=== PATIENT | male | born 1955 | race Caucasian/White ===

== ENCOUNTER 2018-05-27 11:00 | Inpatient (IN) | payer MEDICARE ==
[2018-05-27] MEDS ORDERED: Morphine 4 MG/ML VIAL ONE ×2 (11:27→13:13)
[2018-05-27] MEDS ORDERED: Ondansetron PF 4 MG/2 ML Vial ONE ×3 (11:27→15:15)
--- NOTE | 2018-05-27 11:52 | RAD ---
FXR Hip Rt 2-3 View History: [Fall] Comparison: Radiograph 2010 Findings: Practically undisplaced right mid cervical femoral neck fracture. There is some heterotopic ossification along the lesser trochanter. The right obturator ring appears to be intact. Impression: Right mid cervical femoral neck fracture.
--- NOTE | 2018-05-27 12:16 | RAD ---
PORTABLE CHEST 1 VIEW: Date; 05/27/18 Time: 1152 hours HISTORY: Preoperative evaluation. Hip fracture. FINDINGS: The heart size is normal. The lungs are well expanded without focal areas of consolidation, pneumotho races, jesus pulmonary edema, or pleural effusions. IMPRESSION: No acute process. POS: TPC
[2018-05-27 12:18] LABS: #Basophils 0.1 thou/uL (0.0-0.2); #Eosinphils 0.1 thou/uL (0.0-0.7); #Monocytes 0.5 thou/uL (0.11-0.59); #Neutrophils 6.1 thou/uL (1.40-6.50); %Basophils 0.9 % (0.0-1.0); %Eosinophils 1.1 % (0.0-10.0); %Lymphocytes 12.3 % (21.0-51.0); %Monocytes 6.9 % (0.0-10.0); %Neutrophils 78.8 % (42.0-75.0); Hemoglobin 14.5 g/dL (14.0-18.0); Mean Corpuscular HGB CONC 32.7 g/dL (32.0-36.0); Mean Corpuscular Hemoglobin 29.7 pg (27.0-31.0); Mean Corpuscular Volume 90.8 fL (78.0-98.0); Platelet Count 160 thou/uL (130-400); RBC Distribution Width 12.2 % (11.5-14.5); Red Blood Cell (RBC) Count 4.89 mill/uL (4.70-6.10); White Blood Cell (WBC) Count 7.8 thou/uL (4.8-10.8)
[2018-05-27 12:34] LABS: ALT (SGPT) 12 U/L (8-55); AST (SGOT) 14 U/L (5-34); Albumin 4.2 g/dL (3.4-4.8); Alkaline Phosphatase 53 U/L (40-150); Anion Gap 11 mmol/L (10-20); BUN (Urea Nitrogen) 25 mg/dL (8.4-25.7); Bilirubin, Total 0.5 mg/dL (0.2-1.2); Calc. Creatinine Clearance 0 mL/min (70-130); Carbon Dioxide 25 mmol/L (23-31); Chloride 109 mmol/L (98-107); Estimated GFR-MDRD 84; Globulin 2.3 g/dL (2.4-3.5); Glucose 109 mg/dL (80-115); Potassium 4.7 mmol/L (3.5-5.1); Protein, Total 6.5 g/dL (5.8-8.1); Sodium 140 mmol/L (136-145)
--- NOTE | 2018-05-27 13:04 | CON ---
DATE OF CONSULTATION: 05/27/2018 This is Giulia Dsouza PA-C dictating a report for Nitesh Mejia MD. CONSULTING PHYSICIAN: Nitesh Mejia MD REASON FOR CONSULTATION: Right hip fracture. HISTORY OF PRESENT ILLNESS: This is a 63-year-old male with past medical history significant for right-sided CVA in the , who presented to our emergency department after a mechanical fall at home. The patient states that he struck his head on the edge of a pickup truck, but reported significant right hip discomfort upon arrival. No loss of consciousness. He does state that his right leg is shorter at baseline, and he does wear an AFO to the right side. He denies any change in baseline sensation or numbness or tingling in this extremity. He denies any other extremity trauma. PAST MEDICAL HISTORY: Significant for hyperlipidemia, hypertension, and history of 2 strokes in 1988. PAST SURGICAL HISTORY: Significant for brain surgery in 1988, bilateral toe surgeries, and left shoulder surgery x2. SOCIAL HISTORY: The patient denies alcohol use and denies drug use. He has a 34-year history of smoking, but quit 17 years ago. He lives at home with family. He normally ambulates with a cane to the left upper extremity with AFO present to the right lower extremity. He states he does have a wheelchair at home available for use, and his home is wheelchair accessible. FAMILY HISTORY: Reviewed and noncontributory. REVIEW OF SYSTEMS: A 10-point review of systems conducted and otherwise negative except for stated above. PHYSICAL EXAMINATION: VITAL SIGNS: Show blood pressure of 130/75, pulse of 62, respiratory rate of 18 , temperature of 97.5 degrees Fahrenheit taken orally, and O2 saturation of 92% on room air. GENERAL: The patient is awake and alert. He is in no apparent distress. He is sitting up in the emergency department bed. His is present at bedside. He is pleasant and cooperative and answers all questions appropriately. HEENT: Head is normocephalic, atraumatic. NECK: Supple. Trachea midline. Breathing nonlabored. EXTREMITIES: The right upper extremity was noted to be contracted at the elbow. The right lower extremity is flexed at the hip and propped up on a pillow with flexion at the knee. There is an AFO noted to the right lower extremity. There is no evidence of ecchymosis or wounds to the right hip. The patient is unable to wiggle his toes, but reports intact sensation. The left upper and left lower extremities were noted to be without any evidence of trauma. RADIOGRAPHIC FINDINGS: Including views of the right hip demonstrate a right hip femoral neck fracture without displacement. ASSESSMENT: Right hip femoral neck fracture without displacement, status post mechanical fall in a patient with history of right-sided deficits, status post cerebrovascular accident. PLAN: At this time, the patient has been n.p.o. since yesterday evening. We would like to take him to the operating room for surgical fixation of his right hip fracture in order to preserve his anatomy and promote function of his right hip. We plan to do percutaneous screw fixation due to the lack of displacement of this fracture site. I have discussed this plan of care with the patient. He does verbalize understanding that he may have to be nonweightbearing for a series of up to 8 to 12 weeks following surgery and for this reason, he may need to use the wheelchair that he has available at home. He verbalized understanding with this. Risks, benefits, and alternatives of surgery discussed at length with the patient today. These include, but are not limited to bleeding, infection, neurovascular injury, malunion, and nonunion of the fracture site. He is amenable to this plan of care. The patient will be admitted to the Trauma Services. Job ID: [id number] [facility]
[2018-05-27] MEDS ORDERED: Dextrose 50% Abboject 50 ML SYRINGE SLOW IVP PRN (13:15)
[2018-05-27] MEDS ORDERED: Dextrose 5% in Water 1,000 ML IV PRN (13:15)
[2018-05-27] MEDS ORDERED: hydrALAZINE 20 MG/ML VIAL SLOW IVP PRN (13:15)
[2018-05-27] MEDS ORDERED: Ondansetron ODT 4 MG TAB PO PRN (13:15)
[2018-05-27] MEDS ORDERED: Ondansetron PF 4 MG/2 ML Vial IVP PRN (13:15)
[2018-05-27 14:17] LABS: Phosphorus 2.6 mg/dL (2.3-4.7)
[2018-05-27] MEDS ORDERED: CEFAZOLIN 2 GM in Premix Bag 1 BAG IVPB SCH (15:00)
[2018-05-27] MEDS ORDERED: PROPOFOL 200 MG/20 ML VIAL ONE (15:15)
[2018-05-27] MEDS ORDERED: Succinylcholine Chloride 20 MG/ML 10 ml SYRINGE FS ONE (15:15)
[2018-05-27] MEDS ORDERED: Rocuronium Bromide 10 MG/ML (10ML VIAL) ONE (15:15)
[2018-05-27] MEDS ORDERED: Lidocaine 1% PF 5 ML VIAL ONE (15:15)
[2018-05-27] MEDS ORDERED: Dexamethasone 20 MG/5 ML VIAL ONE (15:15)
--- NOTE | 2018-05-27 16:05 | HP ---
This is Verona Cruz NP dictating a report for Viet Avery MD. CONSULTING PHYSICIAN: Nitesh Mejia MD HISTORY OF PRESENT ILLNESS: This is a 63-year-old gentleman with a past history of a CVA in 1988. The patient reports he had a significant head injury and the patient had 2 strokes after having brain surgery. The patient with a right-sided deficit. The patient with contracted right upper extremity and footdrop to right foot. The patient wears a brace on the right foot and ambulates with a cane. The patient was at home when he tripped and fell, landing onto his right side. The patient denies any loss of consciousness. The patient reported immediate right leg pain. The patient denies any change in sensation to the right lower extremity. The patient denies any other injuries. MEDICATIONS: Lipitor 10mg daily, Buspar 15 mg TID, Questran 4gm TID with meals, Lomotil, Celexa 40 mg daily, [place] 10/325mg , Claritin 10mg daily, Zofran 8mg, Phenergan 12.5mg, Flomax 0.4 mg PO HS, Desyrel 50mg, Ambien 5mg PAST MEDICAL HISTORY: Hyperlipidemia, hypertension, and history of 2 strokes in 1988. PAST SURGICAL HISTORY: Brain surgery, post traumatic brain injury in 1988; bilateral toe surgeries; and left shoulder surgery x2. SOCIAL HISTORY: The patient denies any use of alcohol or drug use. The patient reports a long history of smoking approximately 34 years, where he smoked 5 packs a day, that has quit approximately 17 years ago. The patient lives at home with his . The patient normally ambulates with a cane. REVIEW OF SYSTEMS: A 10-point review of systems is negative unless otherwise stated in the above HPI. PHYSICAL EXAMINATION: VITAL SIGNS: Heart rate 64, respiratory rate 16, temperature 97.5, SpO2 of 94% on room air, and blood pressure 130/75. GENERAL: The patient is awake, alert, sitting up in the ER stretcher. The patient in no distress. The patient's is at bedside. HEENT: Head is atraumatic, normocephalic. NECK: Trachea is midline. There is no cervical tenderness. Normal range of motion. CARDIOVASCULAR: Regular rate and rhythm. No murmur. No pedal edema. RESPIRATORY: Breathing is nonlabored. Bilateral equal breath sounds. No recent wheezing, rales, or rhonchi. ABDOMEN: Slightly distended, reports normal. Soft, nontender. Positive bowel movements this morning. EXTREMITIES: Right upper extremity contracted at the elbow. Right lower extremity flexed at the hip and propped on a pillow with flexion. This is most comfortable for the patient. The patient with footdrop to the right lower extremity. Left upper and lower extremity unremarkable. Shortening noted to the right lower extremity. NEURO: GCS 15. No focal deficits. Normal sensation in all extremities. 2+ distal pulses in all 4 extremities. ASSESSMENT: 1. Status post mechanical fall. 2. Right hip femoral neck fracture without displacement. 3. Acute traumatic pain. 4. History of cerebrovascular accident with right-sided deficits. PLAN: The patient will be kept n.p.o. Dr. Mejia plans to take him to the operating room for surgical fixation of the right hip later this afternoon. We will place the patient on a pain regimen. We will also place the patient on a bowel regimen. Physical and occupational therapy orders will be placed. We will also place a rehab screen for the patient. Plan has been discussed with Dr. Avery, who also agrees. Job ID: [id number] [facility]
[2018-05-27] MEDS ORDERED: Fentanyl 100 MCG/2 ML VIAL ONE ×4 (16:06→18:14)
[2018-05-27] MEDS ORDERED: SUGAMMADEX SODIUM 200 MG/2 ML VIAL ONE (16:18)
--- NOTE | 2018-05-27 16:53 | RAD ---
FIntraoperative right hip 2-3 view series Clinical history: Right hip pinning FINDINGS: 3 corticated metallic screws traverse the proximal right femur about site of subcapital fra cture with near anatomic alignment demonstrated on the provided views. There is limited assessment on the basis of magnified intraoperative fluoroscopic imaging. IMPRESSION: Intraoperative views of right hip, as above.
[2018-05-27] MEDS ORDERED: HYDROmorphone 2 MG/ML VIAL SLOW IVP PRN (16:57)
[2018-05-27] MEDS ORDERED: Promethazine HCl 25 MG/ML VIAL SLOW IVP PRN (16:57)
[2018-05-27] MEDS ORDERED: Morphine Sulfate 2 MG/ML SYRINGE SLOW IVP PRN (16:57)
[2018-05-27] MEDS ORDERED: Promethazine HCl 25 MG/ML VIAL IM PRN (16:57)
[2018-05-27] MEDS ORDERED: Meperidine HCl/PF 25 MG/ML VIAL SLOW IVP PRN (16:57)
[2018-05-27] MEDS ORDERED: Ondansetron HCl/PF 4 MG/2 ML Vial IVP PRN (16:57)
[2018-05-27] MEDS ORDERED: Promethazine HCl 25 MG/ML VIAL ONE (16:59)
[2018-05-27] MEDS ORDERED: Ketorolac Tromethamine 30 MG/ML VIAL IVP SCH (18:00)
[2018-05-27] MEDS ORDERED: HYDROmorphone 2 MG/ML VIAL ONE (18:13)
[2018-05-27] MEDS: Acetaminophen 500 MG TAB PO SCH ×3 (19:37→20:32)
[2018-05-27] MEDS: Sodium Chloride 0.9% 1,000 ML IV SCH ×2 (19:38→21:23)
[2018-05-27] MEDS: Gabapentin 300 MG CAP PO SCH ×2 (19:38→20:15)
[2018-05-27] MEDS: traMADol HCl 50 MG TAB PO SCH ×3 (19:38→20:33)
[2018-05-27] MEDS: Famotidine 20 MG TAB PO SCH (20:15)
[2018-05-27] MEDS: Senokot S 8.6-50 MG TAB PO SCH (20:15)
[2018-05-27] MEDS: Ketorolac Tromethamine 30 MG/ML VIAL IVP SCH (20:33)
[2018-05-27] MEDS: CEFAZOLIN 2 GM in Premix Bag 1 BAG IVPB SCH (21:03)
[2018-05-27 21:30] VITALS: BMI 27.1
[2018-05-28] MEDS: Morphine 4 MG/ML VIAL SLOW IVP PRN ×2 (00:46→05:28)
[2018-05-28] MEDS: traMADol HCl 50 MG TAB PO SCH (03:26)
[2018-05-28] MEDS: Acetaminophen 500 MG TAB PO SCH ×3 (03:26→17:08)
[2018-05-28] MEDS: Ketorolac Tromethamine 30 MG/ML VIAL IVP SCH ×3 (03:27→16:22)
[2018-05-28] MEDS: CEFAZOLIN 2 GM in Premix Bag 1 BAG IVPB SCH (05:29)
[2018-05-28] MEDS: Sodium Chloride 0.9% 1,000 ML IV SCH (05:51)
[2018-05-28] MEDS ORDERED: Melatonin 3 MG TAB PO PRN (06:39)
[2018-05-28] MEDS ORDERED: Promethazine 25 MG TAB PO PRN (06:40)
[2018-05-28] MEDS ORDERED: Tamsulosin HCl 0.4 MG CAP PO SCH (06:45)
[2018-05-28 07:14] LABS: #Basophils 0.1 thou/uL (0.0-0.2); #Eosinphils 0.1 thou/uL (0.0-0.7); #Lymphocytes 0.9 thou/uL (1.20-3.40); #Monocytes 0.9 thou/uL (0.11-0.59); #Neutrophils 7.4 thou/uL (1.40-6.50); %Basophils 0.7 % (0.0-1.0); %Eosinophils 1.3 % (0.0-10.0); %Monocytes 9.3 % (0.0-10.0); %Neutrophils 78.8 % (42.0-75.0); Hemoglobin 13.6 g/dL (14.0-18.0); Mean Corpuscular HGB CONC 32.4 g/dL (32.0-36.0); Mean Corpuscular Volume 92.4 fL (78.0-98.0); Mean Platelet Volume 9.5 fL (7.4-10.4); Platelet Count 157 thou/uL (130-400); RBC Distribution Width 12.3 % (11.5-14.5); Red Blood Cell (RBC) Count 4.55 mill/uL (4.70-6.10); White Blood Cell (WBC) Count 9.4 thou/uL (4.8-10.8)
[2018-05-28 07:48] LABS: ALT (SGPT) 13 U/L (8-55); AST (SGOT) 23 U/L (5-34); Albumin 3.9 g/dL (3.4-4.8); Alkaline Phosphatase 50 U/L (40-150); Anion Gap 13 mmol/L (10-20); BUN (Urea Nitrogen) 27 mg/dL (8.4-25.7); Bilirubin, Total 0.7 mg/dL (0.2-1.2); Calc. Creatinine Clearance 80 mL/min (70-130); Calcium 8.6 mg/dL (7.8-10.44); Carbon Dioxide 22 mmol/L (23-31); Chloride 108 mmol/L (98-107); Estimated GFR-MDRD 60; Globulin 2.4 g/dL (2.4-3.5); Glucose 112 mg/dL (80-115); Magnesium 2.2 mg/dL (1.6-2.6); Phosphorus 3.9 mg/dL (2.3-4.7); Potassium 4.7 mmol/L (3.5-5.1); Protein, Total 6.3 g/dL (5.8-8.1); Sodium 138 mmol/L (136-145)
[2018-05-28] MEDS ORDERED: Losartan 25 MG TAB PO SCH (09:00)
[2018-05-28] MEDS ORDERED: Ondansetron ODT 8 MG TAB PO SCH (09:00)
[2018-05-28] MEDS ORDERED: Loratadine 10 MG TAB PO SCH (09:00)
[2018-05-28] MEDS ORDERED: Citalopram 20 MG TAB PO SCH (09:00)
[2018-05-28] MEDS: Famotidine 20 MG TAB PO SCH ×2 (09:01→20:24)
[2018-05-28] MEDS: Dicyclomine 20 MG TAB PO SCH (09:02)
[2018-05-28] MEDS: Gabapentin 300 MG CAP PO SCH ×3 (09:02→20:24)
[2018-05-28] MEDS: Senokot S 8.6-50 MG TAB PO SCH ×2 (09:02→20:24)
[2018-05-28] MEDS: HYDROcodone/Acetaminophen 10/325 mg Tablet PO SCH ×2 (09:03→20:23)
[2018-05-28] MEDS: Polyethylene Glycol 3350 17 GM Packet PO SCH (09:08)
[2018-05-28] MEDS: Diphenoxylate HCl/Atropine Tablet PO SCH (10:46)
[2018-05-28] MEDS: Cholestyramine/Aspartame 4 gm Packet PO SCH ×3 (10:48→17:32)
[2018-05-28] MEDS ORDERED: Non-Formulary Item 1 EACH (Promethazine Hcl [Promethazine Hcl] 12.5 MG) PO PRN (16:37)
[2018-05-28] MEDS ORDERED: Non-Formulary Item 1 EACH (Melatonin [Melatonin] 5 MG) PO PRN (16:37)
--- NOTE | 2018-05-28 16:52 | OP ---
DATE OF PROCEDURE: 05/27/2018 PREOPERATIVE DIAGNOSIS: Right femoral neck fracture. POSTOPERATIVE DIAGNOSIS: Right femoral neck fracture. PROCEDURE PERFORMED: Closed reduction and percutaneous screw stabilization of right femoral neck fracture. ANESTHESIA: General. ESTIMATED BLOOD LOSS: 20 mL. IMPLANTS: Synthes 7.3 mm cannulated screws x3. COMPLICATIONS: None. DRAINS: None. SPECIMEN: None. OUTCOME: Near-anatomic alignment. INDICATIONS: Mr. Pamler is a pleasant 63-year-old gentleman, who sustained a ground level fall, fracturing his right femoral neck. The patient does have some weakness on the right side secondary to a prior stroke. After discussion with the patient including risks and benefits, we have decided to proceed with an attempt to closed reduction and percutaneous screw fixation given the minimally displaced nature of this fracture. Informed consent has been obtained. I believe all questions have been answered. DESCRIPTION OF PROCEDURE: The patient was brought to the operating room and a time-out performed, followed by induction of general anesthesia. Next, the patient was positioned supine on the fracture table with the injured right lower extremity held in longitudinal traction and the left hip held in extension to allow for AP lateral imaging of the right femoral neck region. A sterile prep and drape were then performed to the right lateral thigh. Next, under C-arm guidance, a small incision was made at the lateral thigh at about the level of the lesser trochanter. Next, a threaded guidewire was passed from the lateral cortex of the femur just proximal to the lesser trochanter, traveling up the femoral neck along its inferior portion and into the femoral head. Once appropriately positioned, 2 additional threaded guidewires were passed, 1 superior and anterior to the first and the other 1 superior and posterior to the first. Once appropriately positioned, measurement was taken off these guidewires and then a cannulated drill was used to perforate the lateral cortex of the proximal femur. Next, 3 appropriate length screws were passed over their respective guidewires stabilizing and compressing the fracture. The guidewires were then removed and final AP and lateral C-arm images were obtained of the hip. The small wound was then irrigated with bulb syringe and closed with 2-0 Vicryl, followed by ellie for the final skin closure. Xeroform gauze and tape dressing were applied to the thigh, and the patient was transferred to recovery room in stable condition. There were no complications and he tolerated the procedure well. Job ID: [id number]
--- NOTE | 2018-05-28 17:10 | PRG ---
DATE OF SERVICE: 05/28/2018 SUBJECTIVE: The patient was seen this afternoon, sitting up in bed with no signs of acute distress. Reported pain has been well controlled postoperatively. He is tolerating a regular diet. Initially, he was not able to urinate and was in and out cath, but reports that he is voiding now without difficulty. He normally walks at home with a cane and lives with his . He is to work with Physical and Occupational Therapy today. Denies nausea, vomiting, or diarrhea. OBJECTIVE: VITAL SIGNS: Temperature 98.4, pulse 92, respirations 18, oxygen saturation 91% on room air, blood pressure 121/71. GENERAL: Well-appearing male, sitting up in bed with no signs of acute distress. PULMONARY: Equal chest rise and fall. Clear breath sounds bilaterally. No signs of acute respiratory distress. CARDIAC: Regular rate and rhythm. No murmurs, gallops, or rubs. GI: Abdomen is soft, nontender, nondistended. EXTREMITIES: Right lower extremity with decreased motor. Sensation is intact. Right thigh dressing is clean, dry, and intact. Right upper extremity contracted with decreased motor, this is baseline. 2+ pulses in all extremities. No significant swelling noted. LABORATORY FINDINGS: White count 4.9, hemoglobin 13.6, hematocrit 42.1, platelets 157. Sodium 138, potassium 4.7, chloride 108, carbon dioxide 22, BUN 26, creatinine 1.23, glucose 112, phosphorus 3.9, magnesium 2.2. DIAGNOSTIC FINDINGS: There are no new diagnostic findings to report. ASSESSMENT: 1. Status post mechanical fall. 2. Right femoral neck fracture. 3. History of cerebrovascular accident x2 with right lower extremity foot drop and right upper extremity contraction. 4. Hypertension. 5. Hyperlipidemia. 6. Urinary retention. PLAN: The patient was I and O catheterized once, but is now voiding on his own. We will start aspirin today for DVT prophylaxis. Physical and Occupational Therapy to see the patient. He will start to work on discharge planning to a swing bed. He is 25% weightbearing on right lower extremity. The patient is ready for discharge at this time. The patient was discussed with Dr. Carballo this morning. Job ID: [id number]
[2018-05-28] MEDS: Acetaminophen 325 MG TAB PO SCH (17:32)
[2018-05-28] MEDS: Aspirin 81 mg Enteric Coated Tablet PO SCH (20:24)
[2018-05-28] MEDS: traZODone HCl 50 MG TAB PO SCH (20:24)
[2018-05-28] MEDS ORDERED: Zolpidem Tartrate 5 MG TAB PO SCH (21:00)
[2018-05-28] MEDS ORDERED: traZODone HCl 50 MG TAB PO SCH (21:00)
[2018-05-28] MEDS ORDERED: Atorvastatin Calcium 10 MG TAB PO SCH (21:00)
[2018-05-28] MEDS: Ibuprofen 600 MG TAB PO SCH (21:25)
[2018-05-28] MEDS: Zolpidem Tartrate 5 MG TAB PO SCH (21:25)
[2018-05-29] MEDS: Acetaminophen 325 MG TAB PO SCH ×4 (00:33→17:32)
[2018-05-29] MEDS: Ibuprofen 600 MG TAB PO SCH ×3 (04:49→21:37)
[2018-05-29] MEDS ORDERED: Tamsulosin HCl 0.4 MG CAP PO SCH (06:00)
[2018-05-29] MEDS: Cholestyramine/Aspartame 4 gm Packet PO SCH ×3 (08:20→17:32)
[2018-05-29] MEDS: Tamsulosin HCl 0.4 MG CAP PO SCH (09:17)
[2018-05-29] MEDS: Famotidine 20 MG TAB PO SCH ×2 (09:17→21:37)
[2018-05-29] MEDS: Citalopram 20 MG TAB PO SCH (09:17)
[2018-05-29] MEDS: Dicyclomine 20 MG TAB PO SCH (09:18)
[2018-05-29] MEDS: HYDROcodone/Acetaminophen 10/325 mg Tablet PO SCH ×2 (09:18→21:36)
[2018-05-29] MEDS: Aspirin 81 mg Enteric Coated Tablet PO SCH ×2 (09:18→21:37)
[2018-05-29] MEDS: Gabapentin 300 MG CAP PO SCH ×3 (09:18→21:37)
[2018-05-29] MEDS: Atorvastatin Calcium 10 MG TAB PO SCH (09:19)
[2018-05-29] MEDS: Loratadine 10 MG TAB PO SCH (09:19)
[2018-05-29] MEDS: Senokot S 8.6-50 MG TAB PO SCH ×2 (09:19→21:37)
[2018-05-29] MEDS: Polyethylene Glycol 3350 17 GM Packet PO SCH (09:19)
[2018-05-29] MEDS: Losartan 25 MG TAB PO SCH (09:19)
[2018-05-29] MEDS: Diphenoxylate HCl/Atropine Tablet PO SCH (09:25)
--- NOTE | 2018-05-29 14:42 | PRG ---
DATE OF SERVICE: 05/29/2018 SUBJECTIVE: The patient was seen this morning, sitting up in bed with no signs of acute distress. Reported pain is well controlled, tolerating a regular diet, and voiding without difficulties. Denies nausea, vomiting, and diarrhea. OBJECTIVE: VITAL SIGNS: Temperature 98.4, pulse 80, respirations 16, oxygen saturation 95% on room air, and blood pressure 131/71. GENERAL: Well-appearing, middle-aged male, sitting up in bed with no signs of acute distress. PULMONARY: Equal chest rise and fall. Clear breath sounds bilaterally. No signs of acute respiratory distress. CARDIAC: Regular rate and rhythm. No murmurs, gallops, or rubs. GI: Abdomen is soft, nontender, and nondistended. EXTREMITIES: Right lower extremity with decreased motor. Sensation intact. Right thigh dressing is clean, dry, and intact. Right upper extremity contracted with decreased motor, this is baseline. 2+ pulses in all extremities. No significant swelling noted. LABORATORY FINDINGS: There are no laboratory findings to discuss. DIAGNOSTIC FINDINGS: There are no new diagnostic findings to discuss. ASSESSMENT: 1. Status post mechanical fall. 2. Right femoral neck fracture. 3. History of cerebrovascular accident x2 with right lower extremity footdrop and right upper extremity contraction. 4. History of hypertension. 5. Hyperlipidemia. 6. Urinary retention. PLAN: The patient will continue to work with Physical and Occupational Therapy. He will also continue to receive supportive care. Continue regular diet and current pain regimen. He is pending placement in a swing bed. The patient was seen and examined by myself and Dr. Carballo this morning during rounds. Job ID: [id number]
[2018-05-29] MEDS: Zolpidem Tartrate 5 MG TAB PO SCH (21:37)
[2018-05-29] MEDS: traZODone HCl 50 MG TAB PO SCH (21:37)
[2018-05-30] MEDS: Acetaminophen 325 MG TAB PO SCH ×4 (00:36→17:13)
[2018-05-30] MEDS: Ibuprofen 600 MG TAB PO SCH ×3 (06:07→21:08)
[2018-05-30] MEDS: Polyethylene Glycol 3350 17 GM Packet PO SCH (08:52)
[2018-05-30] MEDS: Dicyclomine 20 MG TAB PO SCH (08:54)
[2018-05-30] MEDS: Senokot S 8.6-50 MG TAB PO SCH ×2 (08:54→21:08)
[2018-05-30] MEDS: Losartan 25 MG TAB PO SCH (08:54)
[2018-05-30] MEDS: Aspirin 81 mg Enteric Coated Tablet PO SCH ×2 (08:56→21:07)
[2018-05-30] MEDS: HYDROcodone/Acetaminophen 10/325 mg Tablet PO SCH ×2 (08:57→21:08)
[2018-05-30] MEDS: Atorvastatin Calcium 10 MG TAB PO SCH (08:57)
[2018-05-30] MEDS: Loratadine 10 MG TAB PO SCH (08:57)
[2018-05-30] MEDS: Citalopram 20 MG TAB PO SCH (08:57)
[2018-05-30] MEDS: Tamsulosin HCl 0.4 MG CAP PO SCH (08:58)
[2018-05-30] MEDS: Gabapentin 300 MG CAP PO SCH ×3 (08:58→21:08)
[2018-05-30] MEDS: Cholestyramine/Aspartame 4 gm Packet PO SCH ×3 (08:58→17:13)
[2018-05-30] MEDS: Diphenoxylate HCl/Atropine Tablet PO SCH (08:58)
--- NOTE | 2018-05-30 14:17 | PRG ---
DATE OF SERVICE: 05/30/2018 SUBJECTIVE: The patient was seen this morning sitting up in bed. Reported pain is well controlled. He is sleeping well overnight, tolerating a regular diet. Working with physical therapy and voiding without difficulties. He denies nausea, vomiting, or diarrhea at this time. OBJECTIVE: VITAL SIGNS: Temperature 98.2, pulse 67, respirations 14, oxygen saturation 97% on room air, blood pressure 132/65. GENERAL: Well-appearing middle-aged male, sitting up in bed with no signs of acute distress. PULMONARY: Equal chest rise and fall. Clear breath sounds bilaterally. No signs of acute respiratory distress. CARDIAC: Regular rate and rhythm. No murmurs, gallops, or rubs. GI: Abdomen is soft, nontender, nondistended. EXTREMITIES: Right lower extremity with decreased motor. Sensation intact. Right thigh dressing is clean, dry, and intact. Right upper extremity contraction with decreasing motor, this is baseline. 2+ pulses in all extremities. No significant swelling noted. LABORATORY FINDINGS: No new laboratory findings to discuss. DIAGNOSTIC FINDINGS: There are no new diagnostic findings to discuss. ASSESSMENT: 1. Status post mechanical fall. 2. Right femoral neck fracture. 3. History of cerebrovascular accident x2 with right lower extremity footdrop and right upper extremity contraction. 4. History of hypertension, hyperlipidemia, and urinary retention. PLAN: The patient will continue to receive supportive care as well as physical and occupational therapy. We will continue his diet and current pain regimen. He is pending placement at a swing bed. The patient is ready for discharge at this time. The patient was seen and examined by Dr. Carballo this morning during rounds. Job ID: [id number]
[2018-05-30] MEDS: Zolpidem Tartrate 5 MG TAB PO SCH (21:08)
[2018-05-30] MEDS: traZODone HCl 50 MG TAB PO SCH (21:08)
[2018-05-30] MEDS ORDERED: Bisacodyl 10 MG SUPP PR PRN (21:12)
[2018-05-31] MEDS: Acetaminophen 325 MG TAB PO SCH ×4 (01:00→17:37)
[2018-05-31] MEDS: Ibuprofen 600 MG TAB PO SCH ×3 (05:15→21:16)
[2018-05-31] MEDS: Losartan 25 MG TAB PO SCH (08:28)
[2018-05-31] MEDS: Gabapentin 300 MG CAP PO SCH ×3 (08:29→20:04)
[2018-05-31] MEDS: Tamsulosin HCl 0.4 MG CAP PO SCH (08:29)
[2018-05-31] MEDS: Loratadine 10 MG TAB PO SCH (08:29)
[2018-05-31] MEDS: Cholestyramine/Aspartame 4 gm Packet PO SCH ×3 (08:35→17:36)
[2018-05-31] MEDS: Aspirin 81 mg Enteric Coated Tablet PO SCH ×2 (08:35→21:17)
[2018-05-31] MEDS: Polyethylene Glycol 3350 17 GM Packet PO SCH (08:36)
[2018-05-31] MEDS: Senokot S 8.6-50 MG TAB PO SCH ×2 (08:36→20:05)
[2018-05-31] MEDS: Citalopram 20 MG TAB PO SCH (08:36)
[2018-05-31] MEDS: Diphenoxylate HCl/Atropine Tablet PO SCH (08:36)
[2018-05-31] MEDS: Dicyclomine 20 MG TAB PO SCH (08:36)
[2018-05-31] MEDS: HYDROcodone/Acetaminophen 10/325 mg Tablet PO SCH ×2 (08:36→20:04)
[2018-05-31] MEDS: Atorvastatin Calcium 10 MG TAB PO SCH (08:36)
--- NOTE | 2018-05-31 18:40 | PRG ---
DATE OF SERVICE: 05/31/2018 SUBJECTIVE: This is a 63-year-old male, who is status post mechanical fall resulting in a right femoral neck fracture. The patient is postop day #4, status post closed reduction and percutaneous stabilization of his injury with Orthopedic Surgery. Upon my evaluation, the patient vocalized no complaints. He is eager to be discharged from the hospital. He is currently awaiting insurance approval for [facility]. OBJECTIVE: VITAL SIGNS: Temperature 98.4, pulse 70, respirations 14, O2 saturations 96% on room air, and blood pressure 146/69. GENERAL: Elderly appearing male, in no acute distress, sitting in bed. PULMONARY: Normal work of breathing. Symmetric rise. CARDIOVASCULAR: Regular rate and rhythm. GI: Abdomen is soft, nontender, nondistended. MUSCULOSKELETAL: Moves all extremities x4. NEUROLOGIC: No new focal deficit is noted. LABORATORY FINDINGS: No new laboratory findings. ASSESSMENT: 1. Status post mechanical fall. 2. Right femoral neck fracture. 3. History of CVA x2 with right lower extremity footdrop and right upper extremity contraction. 4. History of hypertension and hyperlipidemia. 5. History of diarrhea, on outpatient antidiarrheal medications, and inpatient constipation. PLAN: Discontinue the patient's outpatient antidiarrheal regimen. Continue stool softeners and laxatives as ordered. Continue pain management as ordered, he is on his home pain regimen. The patient has been approved by [employer], but currently awaiting insurance authorization. Continue PT and OT. Encourage incentive spirometry and mobility. Other supportive care as ordered. The patient has been discussed with Trauma attending. Job ID: [id number]
[2018-05-31] MEDS: traZODone HCl 50 MG TAB PO SCH (21:16)
[2018-05-31] MEDS: Zolpidem Tartrate 5 MG TAB PO SCH (21:17)
[2018-06-01] MEDS: Acetaminophen 325 MG TAB PO SCH ×4 (00:46→17:28)
[2018-06-01] MEDS: Ibuprofen 600 MG TAB PO SCH ×3 (06:12→21:22)
[2018-06-01] MEDS: Cholestyramine/Aspartame 4 gm Packet PO SCH ×3 (08:19→17:28)
[2018-06-01] MEDS: Aspirin 81 mg Enteric Coated Tablet PO SCH ×2 (09:49→20:04)
[2018-06-01] MEDS: Tamsulosin HCl 0.4 MG CAP PO SCH (09:50)
[2018-06-01] MEDS: Losartan 25 MG TAB PO SCH (09:50)
[2018-06-01] MEDS: Gabapentin 300 MG CAP PO SCH ×3 (09:50→20:05)
[2018-06-01] MEDS: Dicyclomine 20 MG TAB PO SCH (09:50)
[2018-06-01] MEDS: Atorvastatin Calcium 10 MG TAB PO SCH (09:50)
[2018-06-01] MEDS: Citalopram 20 MG TAB PO SCH (09:50)
[2018-06-01] MEDS: Loratadine 10 MG TAB PO SCH (09:51)
[2018-06-01] MEDS: HYDROcodone/Acetaminophen 10/325 mg Tablet PO SCH ×2 (09:54→20:05)
[2018-06-01] MEDS: Diphenoxylate HCl/Atropine Tablet PO SCH (09:54)
[2018-06-01] MEDS: Senokot S 8.6-50 MG TAB PO SCH ×3 (09:58→20:05)
[2018-06-01] MEDS: Polyethylene Glycol 3350 17 GM Packet PO SCH ×2 (09:58→12:32)
[2018-06-01] MEDS ORDERED: Artificial Tear Sol 15 ML BOT EA EYE PRN (16:16)
--- NOTE | 2018-06-01 17:14 | PRG ---
DATE OF SERVICE: 06/01/2018 SUBJECTIVE: The patient is currently postoperative day 5 status post closed reduction and percutaneous pinning of his right femoral neck fracture. The patient had no issues overnight. He is currently awaiting insurance approval for placement. He is tolerating a diet. His bowel function has returned. The patient has been having history of recent diarrhea, that is now controlled. PHYSICAL EXAMINATION: VITAL SIGNS: Temperature is 97.7, heart rate 79, respirations 14, oxygen saturation 96% on room air, and blood pressure 127/80. GENERAL: The patient is resting comfortably, sitting in a chair beside his bed. He is progressing with physical and occupational therapy. HEENT: Unremarkable. LUNGS: Clear to auscultation with good inspiratory and expiratory effort. HEART: Regular rate and rhythm. ABDOMEN: Soft, flat, and nontender with active bowel sounds. DIAGNOSTIC STUDIES: There are no labs or radiographs to review this morning. ASSESSMENT AND PLAN: 1. Status post mechanical fall. 2. Right femoral neck fracture status post closed reduction and percutaneous pinning. 3. History of cerebrovascular accident x2 with right lower extremity footdrop and right upper extremity contraction. 4. History of hypertension and hyperlipidemia. 5. History of diarrhea, on outpatient antidiarrheal medicine. 6. Inpatient constipation, stable. Plan will be to continue supportive care. We will resume the patient's normal GI medications and await final approval of his placement. Job ID: [id number]
[2018-06-01] MEDS: traZODone HCl 50 MG TAB PO SCH (20:01)
[2018-06-01] MEDS: Zolpidem Tartrate 5 MG TAB PO SCH (20:01)
[2018-06-02] MEDS: Acetaminophen 325 MG TAB PO SCH ×4 (00:22→17:29)
[2018-06-02] MEDS: Ibuprofen 600 MG TAB PO SCH ×3 (06:10→22:26)
[2018-06-02] MEDS: HYDROcodone/Acetaminophen 10/325 mg Tablet PO SCH ×2 (08:30→20:38)
[2018-06-02] MEDS: Cholestyramine/Aspartame 4 gm Packet PO SCH ×3 (08:33→17:28)
[2018-06-02] MEDS: Aspirin 81 mg Enteric Coated Tablet PO SCH ×2 (08:35→20:31)
[2018-06-02] MEDS: Dicyclomine 20 MG TAB PO SCH (08:36)
[2018-06-02] MEDS: Citalopram 20 MG TAB PO SCH (08:36)
[2018-06-02] MEDS: Atorvastatin Calcium 10 MG TAB PO SCH (08:36)
[2018-06-02] MEDS: Loratadine 10 MG TAB PO SCH (08:37)
[2018-06-02] MEDS: Gabapentin 300 MG CAP PO SCH ×3 (08:37→20:31)
[2018-06-02] MEDS: Tamsulosin HCl 0.4 MG CAP PO SCH (08:37)
[2018-06-02] MEDS: Losartan 25 MG TAB PO SCH (08:37)
[2018-06-02] MEDS: Diphenoxylate HCl/Atropine Tablet PO SCH (08:37)
[2018-06-02] MEDS: Senokot S 8.6-50 MG TAB PO SCH ×2 (08:38→20:38)
[2018-06-02] MEDS: Polyethylene Glycol 3350 17 GM Packet PO SCH (08:38)
--- NOTE | 2018-06-02 15:00 | PRG ---
DATE OF SERVICE: 06/02/2018 SUBJECTIVE: The patient remains on the surgical floor status post a right femoral neck fracture, which has undergone closed reduction and percutaneous pinning. He tolerated this procedure well. He has been working with Physical and Occupational Therapy and has been waiting for placement. The patient is working with Physical and Occupational Therapy. His pain is controlled. His bowel functions returned. OBJECTIVE: VITAL SIGNS: Temperature is 98.6, heart rate 80, blood pressure 131/78, respirations 16, and oxygen saturation 95% on room air. GENERAL: The patient is resting comfortably in bed. He is awake, alert, and conversant. HEENT: Unremarkable. LUNGS: Clear to auscultation with good inspiratory and expiratory effort. HEART: Regular rate and rhythm. ABDOMEN: Soft, flat, and nontender with active bowel sounds. EXTREMITIES: Neurovascularly intact x4. ASSESSMENT AND PLAN: 1. Status post mechanical fall. 2. Status post closed reduction and percutaneous pinning of a right femoral neck fracture. Plan will be to continue supportive care and hopefully, the patient will be placed tomorrow. Job ID: [id number]
[2018-06-02] MEDS: traZODone HCl 50 MG TAB PO SCH (21:55)
[2018-06-02] MEDS: Zolpidem Tartrate 5 MG TAB PO SCH (21:55)
[2018-06-03] MEDS: Acetaminophen 325 MG TAB PO SCH ×5 (00:13→23:00)
[2018-06-03] MEDS ORDERED: traMADol HCl 50 MG TAB PO PRN ×2 (04:08→04:09)
[2018-06-03] MEDS: Ibuprofen 600 MG TAB PO SCH ×3 (05:22→22:07)
[2018-06-03] MEDS: HYDROcodone/Acetaminophen 10/325 mg Tablet PO SCH ×2 (09:03→20:23)
[2018-06-03] MEDS: Aspirin 81 mg Enteric Coated Tablet PO SCH ×2 (09:04→20:24)
[2018-06-03] MEDS: Losartan 25 MG TAB PO SCH (09:04)
[2018-06-03] MEDS: Gabapentin 300 MG CAP PO SCH ×3 (09:04→20:24)
[2018-06-03] MEDS: Dicyclomine 20 MG TAB PO SCH (09:05)
[2018-06-03] MEDS: Tamsulosin HCl 0.4 MG CAP PO SCH (09:05)
[2018-06-03] MEDS: Loratadine 10 MG TAB PO SCH (09:05)
[2018-06-03] MEDS: Citalopram 20 MG TAB PO SCH (09:05)
[2018-06-03] MEDS: Polyethylene Glycol 3350 17 GM Packet PO SCH (09:05)
[2018-06-03] MEDS: Atorvastatin Calcium 10 MG TAB PO SCH (09:05)
[2018-06-03] MEDS: Senokot S 8.6-50 MG TAB PO SCH ×2 (09:06→20:24)
[2018-06-03] MEDS: Cholestyramine/Aspartame 4 gm Packet PO SCH ×3 (09:08→18:12)
[2018-06-03] MEDS: Diphenoxylate HCl/Atropine Tablet PO SCH (09:12)
--- NOTE | 2018-06-03 17:33 | PRG ---
DATE OF SERVICE: 06/03/2018 This is Raza Christy PA-C dictating a report for Sarkis Carballo DO. SUBJECTIVE: The patient remains on the surgical floor. He is status post closed reduction and percutaneous pinning of right femoral neck fracture. He has been awaiting placement and insurance approval for multiple days now. He has continued to work with Physical and Occupational Therapy. His pain is controlled and he is tolerating a diet and has no complaints at this time. OBJECTIVE: VITAL SIGNS: Temperature is 98.6, heart rate 86, blood pressure 132/75, respirations 20, and oxygen saturation 95% on room air. GENERAL: The patient is resting comfortably in bed. He is awake and conversant and appropriate. HEENT: Unremarkable. LUNGS: Clear to auscultation bilaterally. HEART: Regular rate and rhythm. ABDOMEN: Soft, flat, and nontender with active bowel sounds. EXTREMITIES: Neurovascularly intact x4. DIAGNOSTIC DATA: There are no labs or radiographs reviewed this morning. ASSESSMENT: 1. Status post moped mechanical fall. 2. Status post closed reduction and percutaneous pinning of right femoral neck fracture. PLAN: Plan will be to continue physical and occupational therapy and await insurance approval. The patient was evaluated this morning with Dr. Carballo. Job ID: [id number]
[2018-06-03] MEDS: Zolpidem Tartrate 5 MG TAB PO SCH (20:24)
[2018-06-03] MEDS: traZODone HCl 50 MG TAB PO SCH (20:24)
[2018-06-04] MEDS: Ibuprofen 600 MG TAB PO SCH (05:32)
[2018-06-04] MEDS: Acetaminophen 325 MG TAB PO SCH (05:32)
[2018-06-04 08:15] VITALS: BP 131/85; TEMP 98.6
[2018-06-04] MEDS: Cholestyramine/Aspartame 4 gm Packet PO SCH (09:05)
[2018-06-04] MEDS: HYDROcodone/Acetaminophen 10/325 mg Tablet PO SCH (09:05)
[2018-06-04] MEDS: Diphenoxylate HCl/Atropine Tablet PO SCH (09:06)
[2018-06-04] MEDS: Citalopram 20 MG TAB PO SCH (09:07)
[2018-06-04] MEDS: Losartan 25 MG TAB PO SCH (09:07)
[2018-06-04] MEDS: Aspirin 81 mg Enteric Coated Tablet PO SCH (09:08)
[2018-06-04] MEDS: Dicyclomine 20 MG TAB PO SCH (09:08)
[2018-06-04] MEDS: Atorvastatin Calcium 10 MG TAB PO SCH (09:08)
[2018-06-04] MEDS: Tamsulosin HCl 0.4 MG CAP PO SCH (09:08)
[2018-06-04] MEDS: Loratadine 10 MG TAB PO SCH (09:08)
[2018-06-04] MEDS: Gabapentin 300 MG CAP PO SCH (09:08)
[2018-06-04] MEDS: Senokot S 8.6-50 MG TAB PO SCH (09:10)
[2018-06-04] MEDS: Polyethylene Glycol 3350 17 GM Packet PO SCH (09:10)
--- NOTE | 2018-06-04 21:56 | DIS ---
DATE OF ADMISSION: 05/27/2018 DATE OF DISCHARGE: 06/04/2018 DISCHARGE ATTENDING: Sarkis Carballo DO CONSULTS: Nitesh Mejia MD PROCEDURES: 1. On 05/27/2018, chest x-ray, no acute process. 2. On 05/27/2018 hip x-ray; impression, three corticated metallic screws, transverse in the proximal right femur, about the size of a subcapital fracture with near anatomic alignment demonstrated on the provided views. 3. On 05/27/2018 right hip x-ray, right mid cervical femoral neck fracture. 4. On 05/28/2018, Dr. Mejia took the patient to the OR for closed reduction and percutaneous screw stabilization of the right femoral neck fracture. PRIMARY DIAGNOSIS: Right hip femoral neck fracture without displacement, status post closed reduction and percutaneous screw stabilization of the right femoral neck fracture. SECONDARY DIAGNOSES: 1. Acute traumatic pain. 2. History of cerebrovascular accident with right-sided deficit. DISCHARGE MEDICATIONS: 1. Tylenol 650 mg q.8 hours. 2. Aspirin 81 mg p.o. b.i.d. for one month. 3. Gabapentin 300 mg three times a day. 4. Motrin 600 mg every 8 hours. 5. Senokot S two tablets twice a day. 6. Artificial Tears. 7. Celexa 40 mg daily. 8. Losartan 25 mg p.o. daily. 9. Flomax 0.4 mg p.o. daily. 10. Hydrocodone 10/325 one tablet every 12 hours. 11. Trazodone 500 mg at bedtime. 12. Promethazine 12.5 mg q.8 hours as needed. 13. Melatonin 5 mg at bedtime as needed. 14. Claritin 10 mg daily. 15. Cholestyramine powder 4 g oral three times a day with meals. 16. Lipitor 10 mg p.o. daily. 17. Ambien 5 mg at bedtime. DISCONTINUED MEDICATIONS: 1. Bentyl 20 mg oral daily. 2. Zofran 8 mg ODT. HISTORY OF PRESENT ILLNESS AND HOSPITAL COURSE: This is a 63-year-old gentleman with a past history of CVA in 1988. Status post significant head injury. The patient had 2 strokes after having brain surgery. The patient with chronic right-sided deficits. The patient with contracted right upper extremity and right footdrop. The patient wears brace on the right foot and ambulates with a cane. The patient was at home and tripped and fell landing on his right side. The patient had no loss of consciousness. The patient immediately had right leg pain, was evaluated in the emergency room to have a right hip fracture. The patient denied any other injuries at that time. The patient progressed with physical therapy, was able to ambulate with a walker. The patient did have a fall last night when he was getting out of bed. The patient states that he was going to ask for help, but decided not to and slipped. The patient denied any injury at that time. During today's physical exam, the patient denies any obvious injuries, just reports some soreness. The patient was examined with Dr. Carballo during morning rounds. Physical exam was unremarkable including cardiopulmonary and GI exam. The patient was deemed stable for discharge to [facility] for continued physical and occupational therapy. There was an extended hospital course due to pending insurance and acceptance to [facility]. The patient agrees with the plan and is deemed stable for discharge. DISPOSITION: Stable. DISCHARGE INSTRUCTIONS: Location: [facility]. Diet: Regular diet. Activity: Orthopedic limitations, partial weightbearing, 25%, right lower extremity. Hip precautions. Followup: 1. Follow up with Dr. Carballo as needed. No formal followup is needed. Please call with any questions. 2. Follow up with Dr. Mejia in 10 days. 3. Follow up with primary care physician as needed. This is just a summary of the hospital visit. Job ID: [id number] [facility]
== END 2018-06-04 11:35 | DRG 481 ==
LOC: ERS 11:00 → SURG A 16:11
PROVIDERS: ADMIT Specialist; ATTEND Specialist
PROC: 0QS634Z Reposition Right Upper Femur with Internal Fixation Device, Percutaneous Approach (ICD-10-PCS; principal; 2018-05-27)
DX: S72.001A Fracture of unspecified part of neck of right femur, initial encounter for closed fracture (principal); I69.351 Hemiplegia and hemiparesis following cerebral infarction affecting right dominant side; E78.5 Hyperlipidemia, unspecified; I10 Essential (primary) hypertension; W01.0XXA Fall on same level from slipping, tripping and stumbling without subsequent striking against object, initial encounter; R33.9 Retention of urine, unspecified; Z87.891 Personal history of nicotine dependence; Z79.82 Long term (current) use of aspirin; Z79.899 Other long term (current) drug therapy
CPT/HCPCS: 36415; 71045; 76000; 80053; 83735; 84100; 85025; 86850; 86900; 86901; 93005; 96374; 96375; 96376; C1713; C1769; G0390; J1100; J1170; J1885; J2001; J2270; J2405; J2550; J2704; J3010; Q0169

== ENCOUNTER 2018-06-07 14:06 | Observation (INO) | payer MEDICARE ==
[2018-06-07] MEDS ORDERED: Ondansetron PF 4 MG/2 ML Vial ONE (14:27)
[2018-06-07 14:43] LABS: #Basophils 0.1 thou/uL (0.0-0.2); #Eosinphils 0.2 thou/uL (0.0-0.7); #Lymphocytes 1.6 thou/uL (1.20-3.40); #Monocytes 0.6 thou/uL (0.11-0.59); #Neutrophils 3.4 thou/uL (1.40-6.50); %Basophils 1.4 % (0.0-1.0); %Eosinophils 2.6 % (0.0-10.0); %Monocytes 10.4 % (0.0-10.0); %Neutrophils 58.6 % (42.0-75.0); Hemoglobin 13.3 g/dL (14.0-18.0); Mean Corpuscular Hemoglobin 29.7 pg (27.0-31.0); Mean Corpuscular Volume 92.9 fL (78.0-98.0); Mean Platelet Volume 8.8 fL (7.4-10.4); Platelet Count 208 thou/uL (130-400); RBC Distribution Width 12.1 % (11.5-14.5); Red Blood Cell (RBC) Count 4.47 mill/uL (4.70-6.10); White Blood Cell (WBC) Count 5.8 thou/uL (4.8-10.8)
[2018-06-07 15:07] LABS: ALT (SGPT) 12 U/L (8-55); AST (SGOT) 14 U/L (5-34); Albumin 4.1 g/dL (3.4-4.8); Alkaline Phosphatase 70 U/L (40-150); Anion Gap 12 mmol/L (10-20); BUN (Urea Nitrogen) 23 mg/dL (8.4-25.7); Bilirubin, Total 0.6 mg/dL (0.2-1.2); Calc. Creatinine Clearance 0 mL/min (70-130); Calcium 9.1 mg/dL (7.8-10.44); Carbon Dioxide 25 mmol/L (23-31); Chloride 108 mmol/L (98-107); Estimated GFR-MDRD 82; Glucose 110 mg/dL (80-115); Potassium 4.3 mmol/L (3.5-5.1); Protein, Total 6.1 g/dL (5.8-8.1); Sodium 141 mmol/L (136-145)
[2018-06-07] MEDS ORDERED: ISOVUE-370 76%-LOCM 1 ML ONE (15:09)
--- NOTE | 2018-06-07 15:21 | RAD ---
3 VIEWS LUMBOSACRAL SPINE: Date; 06/07/18 COMPARISON: None. HISTORY: Fall with low back pain. FINDINGS: Three views of the lumbosacral spine show normal height and alignment of the vertebral bodies and int ervertebral discs without fracture or subluxation. Posterior facet arthrosis is seen in the lower lum bosacral spine. Small osteophytes are seen in the upper lumbar spine. IMPRESSION: Degenerative changes of the lumbar spine without acute osseous abnormality. POS: [facility]
--- NOTE | 2018-06-07 15:22 | RAD ---
RIGHT HIP 2 VIEWS: Date: 06/07/18 HISTORY: Right hip injury. COMPARISON: 05/27/18. FINDINGS: Three internal fixation screws have been placed, stabilizing a femoral neck fracture without signific ant malalignment. Prominent enthesophytic changes. IMPRESSION: Placement of three internal fixation screws stabilizing a femoral neck fracture. Significant enthesop hytic changes. No significant change from 05/27/18. POS: [facility]
--- NOTE | 2018-06-07 16:11 | CT ---
CT ANGIOGRAM CHEST WITH CONTRAST, AND 3-D VOLUME RENDERING CLINICAL INDICATION: Dyspnea. Fall. Comparison exam: 04/07/2010 FINDINGS: There is a hypodense and slightly heterogeneous nodule seen in the right lobe of the thyroid gland wh ich measures 3.5 cm. A smaller hypodense nodule is seen in the left lobe of the thyroid gland. There is a much smaller hypodense lesion right lobe of thyroid gland on study in 2011. There is a single tiny filling defect seen within a subsegmental left lower lobe pulmonary artery (im age 71, series 5) suggesting a tiny pulmonary embolus.. No additional filling defects are seen to suggest additional pulmonary emboli. Minimal vascular calcifications are seen in thoracic aorta. Greater degree of vascular calcifications are seen in the coronary arteries. The thoracic aorta is normal in caliber without evidence of an aortic dissection. Mediastinal structures have a normal appearance without evidence of lymphadenopathy. No pulmonary nodule or mass is seen. Linear densities are seen within the lungs bilaterally which may be related to mild atelectasis or scarring. There is a nodular density seen at the right lateral costophrenic angle, but this is stable compared to the study in 2011 suggesting a benign finding and may be related to an area of scarring. The visualized upper abdomen demonstrates a normal CT appearance. The osseous structures have a grossly normal appearance aside from prominent right glenohumeral osteo arthropathy including prominent inferomedial osteophyte. IMPRESSION: 1. Findings suggestive of a single tiny pulmonary embolus involving a subsegmental left lower lobe pu lmonary artery. No additional significant focal defects are seen to suggest pulmonary emboli. 2. Hypodense enlarged right thyroid nodule with smaller left thyroid nodule. Nonemergent thyroid ultr asound is recommended for further evaluation. 3. Above findings were discussed with Dr. Ruvalcaba in the emergency department on 06/07/2018 at 1606 hours.
[2018-06-07] MEDS ORDERED: Enoxaparin Sodium 100 MG/ML SYRINGE ONE (18:12)
[2018-06-07] MEDS ORDERED: Sodium Chloride 0.65% Nasal 44 ML BOT EA NARE PRN (18:17)
[2018-06-07] MEDS ORDERED: Ondansetron PF 4 MG/2 ML Vial IVP PRN ×2 (18:17)
[2018-06-07] MEDS ORDERED: Benzonatate 100 MG CAP PO PRN (18:17)
[2018-06-07] MEDS ORDERED: Calcium Carbonate 500 MG ChewTAB PO PRN (18:17)
[2018-06-07] MEDS ORDERED: Senokot S 8.6-50 MG TAB PO PRN ×2 (18:17)
[2018-06-07] MEDS ORDERED: cloNIDine 0.1 MG TAB PO PRN (18:17)
[2018-06-07] MEDS ORDERED: Bisacodyl 5 MG TAB PO PRN (18:17)
[2018-06-07] MEDS ORDERED: Ondansetron ODT 4 MG TAB PO PRN (18:17)
[2018-06-07] MEDS ORDERED: Diabetic Tussin 200 MG/10 ML UDCUP PO PRN (18:17)
[2018-06-07] MEDS ORDERED: hydrALAZINE 20 MG/ML VIAL SLOW IVP PRN (18:17)
[2018-06-07] MEDS ORDERED: Acetaminophen 325 MG TAB PO PRN (18:17)
[2018-06-07] MEDS ORDERED: Nitroglycerin 0.4 MG TAB (25 Tab Bottle) SL PRN (18:17)
[2018-06-07 18:21] LABS: Bilirubin Negative (Negative); Blood, Urine Negative (Negative); Clarity CLEAR (Clear); Glucose, Urine (Dipstick) Negative (Negative); Leukocyte Negative (Negative); Nitrite Negative (Negative); Protein, Urine (Dipstick) Negative (Neg-Trace)
[2018-06-07 18:24] LABS: Specific Gravity, Urine Greater than 1.060 (1.002-1.036)
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
[2018-06-07 21:14] VITALS: BMI 27.8
[2018-06-07] MEDS ORDERED: Melatonin 3 MG TAB PO PRN (22:43)
[2018-06-07] MEDS ORDERED: Zolpidem Tartrate 5 MG TAB PO SCH (23:15)
[2018-06-07] MEDS ORDERED: traZODone HCl 50 MG TAB PO SCH (23:15)
[2018-06-07] MEDS: Famotidine 20 MG TAB PO SCH (23:20)
[2018-06-07] MEDS: HYDROcodone/Acetaminophen 5/325 mg Tablet PO PRN (23:22)
[2018-06-08 05:43] LABS: #Basophils 0.1 thou/uL (0.0-0.2); #Eosinphils 0.2 thou/uL (0.0-0.7); #Lymphocytes 1.7 thou/uL (1.20-3.40); #Monocytes 0.7 thou/uL (0.11-0.59); #Neutrophils 3.3 thou/uL (1.40-6.50); %Basophils 1.3 % (0.0-1.0); %Eosinophils 3.7 % (0.0-10.0); %Lymphocytes 28.4 % (21.0-51.0); %Monocytes 10.9 % (0.0-10.0); %Neutrophils 55.7 % (42.0-75.0); Hemoglobin 12.5 g/dL (14.0-18.0); Mean Corpuscular HGB CONC 32.5 g/dL (32.0-36.0); Mean Corpuscular Hemoglobin 30.3 pg (27.0-31.0); Mean Corpuscular Volume 93.4 fL (78.0-98.0); Mean Platelet Volume 9.1 fL (7.4-10.4); Platelet Count 203 thou/uL (130-400); RBC Distribution Width 12.2 % (11.5-14.5); Red Blood Cell (RBC) Count 4.14 mill/uL (4.70-6.10); White Blood Cell (WBC) Count 5.9 thou/uL (4.8-10.8)
[2018-06-08 05:57] LABS: Anion Gap 9 mmol/L (10-20); BUN (Urea Nitrogen) 24 mg/dL (8.4-25.7); Calc. Creatinine Clearance 108 mL/min (70-130); Calcium 8.7 mg/dL (7.8-10.44); Carbon Dioxide 27 mmol/L (23-31); Chloride 108 mmol/L (98-107); Estimated GFR-MDRD 82; Glucose 97 mg/dL (80-115); Potassium 4.4 mmol/L (3.5-5.1); Sodium 140 mmol/L (136-145)
[2018-06-08] MEDS: Apixaban 5 MG TAB PO SCH ×2 (08:37→20:50)
[2018-06-08] MEDS: Gabapentin 300 MG CAP PO SCH ×3 (08:37→20:50)
[2018-06-08] MEDS: Famotidine 20 MG TAB PO SCH ×2 (08:37→20:50)
[2018-06-08] MEDS ORDERED: Artificial Tear Sol 15 ML BOT EA EYE PRN (08:51)
[2018-06-08] MEDS: HYDROcodone/Acetaminophen 5/325 mg Tablet PO PRN (08:53)
[2018-06-08] MEDS: Loratadine 10 MG TAB PO SCH (10:45)
[2018-06-08] MEDS: Losartan 25 MG TAB PO SCH (10:45)
[2018-06-08] MEDS: Atorvastatin Calcium 10 MG TAB PO SCH (10:45)
[2018-06-08] MEDS: Senokot S 8.6-50 MG TAB PO SCH ×2 (10:45→20:50)
[2018-06-08] MEDS: Tamsulosin HCl 0.4 MG CAP PO SCH (10:45)
[2018-06-08] MEDS: HYDROcodone/Acetaminophen 10/325 mg Tablet PO SCH ×2 (10:46→20:50)
[2018-06-08] MEDS: Citalopram 20 MG TAB PO SCH (11:31)
[2018-06-08] MEDS: Cholestyramine/Aspartame 4 gm Packet PO SCH ×2 (12:03→18:20)
[2018-06-08] MEDS: Acetaminophen 325 MG TAB PO SCH ×2 (12:03→18:20)
--- NOTE | 2018-06-08 14:04 | PDOC.PN ---
- Subjective Encounter Start Date: 06/08/18 Encounter Start Time: 14:03 Subjective: feels well. no new complaints -: walked w PT. -: no CP/SOB - Objective Resuscitation Status - Order Detail: 06/07/18 18:54 Resuscitation Status Routine Resuscitation Status: FULL: Full Resuscitation Discussed with: discussed w pt MAR Reviewed: Yes Vital Signs & Weight: Vital Signs (12 hours) Temp Pulse Resp BP Pulse Ox 06/08/18 12:00 98.6 F 70 20 135/69 94 L 06/08/18 08:00 98.3 F 72 16 131/66 93 L 06/08/18 05:14 98.2 F 61 20 124/69 95 Weight Weight 204 lb 1.6 oz I&O: 06/07/18 06/08/18 06/09/18 06:59 06:59 06:59 Intake Total 240 250 Output Total 340 400 Balance -100 -150 Result Diagrams: 06/08/18 04:26 06/08/18 04:26 Phys Exam - Physical Examination Constitutional: NAD HEENT: PERRLA, moist MMs, sclera anicteric, oral pharynx no lesions Neck: no nodes, no JVD, supple, full ROM Respiratory: no wheezing, no rales, no rhonchi, clear to auscultation bilateral Cardiovascular: RRR, no significant murmur Gastrointestinal: soft, non-tender, no distention, positive bowel sounds Musculoskeletal: no edema, pulses present Neurological: non-focal, normal sensation, moves all 4 limbs chr r sided spastic hemiparesis Psychiatric: normal affect, A&O x 3 Skin: no rash Dx/Plan (1) Pulmonary emboli Code(s): I26.99 - OTHER PULMONARY EMBOLISM WITHOUT ACUTE COR PULMONALE Status : Acute (2) Frequent falls Code(s): R29.6 - REPEATED FALLS Status: Acute (3) HTN (hypertension) Code(s): I10 - ESSENTIAL (PRIMARY) HYPERTENSION Status: Chronic (4) H/O: CVA (cerebrovascular accident) Code(s): Z86.73 - PRSNL HX OF TIA (TIA), AND CEREB INFRC W/O RESID DEFICITS Status: Chronic (5) Right spastic hemiparesis Code(s): G81.11 - SPASTIC HEMIPLEGIA AFFECTING RIGHT DOMINANT SIDE Status: Chronic - Plan DVT proph w/SCDs cont eliquis. -: DC when accpeted at Rehab -: home meds restarted * . Review of Systems - Review of Systems Constitutional: negative: fever, chills, sweats, weakness, malaise, other Respiratory: negative: Cough, Dry, Shortness of Breath, Hemoptysis, SOB with Excertion, Pleuritic Pain, Sputum, Wheezing Cardiovascular: negative: chest pain, palpitations, orthopnea, paroxysmal nocturnal dyspnea, edema, light headedness, other Gastrointestinal: negative: Nausea, Vomiting, Abdominal Pain, Diarrhea, Constipation, Melena, Hematochezia, Other Genitourinary: negative: Dysuria, Frequency, Incontinence, Hematuria, Retention , Other Musculoskeletal: negative: Neck Pain, Shoulder Pain, Arm Pain, Back Pain, Hand Pain, Leg Pain, Foot Pain, Other Skin: negative: Rash, Lesions, Isaac, Bruising, Other Neurological: negative: Weakness, Numbness, Incoordination, Change in Speech, Confusion, Seizures, Other - Medications/Allergies Allergies/Adverse Reactions: Allergies Allergy/AdvReac Type Severity Reaction Status Date / Time No Known Allergies Allergy Unverified 09/05/12 22:16 Medications: Current Medications Acetaminophen (Tylenol) 650 mg PO Q4H PRN PRN Reason: Headache/Fever/Mild Pain (1-3) Acetaminophen (Tylenol) 650 mg PO Q6HR [facility] Last Admin: 06/08/18 12:03 Dose: 650 mg Hydrocodone Bitart/Acetaminophen ([place] 5/325) 1 tab PO Q4H PRN PRN Reason: Moderate Pain (4-6) Last Admin: 06/08/18 08:53 Dose: 1 tab Hydrocodone Bitart/Acetaminophen ([place] 10/325) 1 tab PO Q12HR [facility] Last Admin: 06/08/18 10:46 Dose: Not Given Apixaban (Eliquis) 5 mg PO BID [facility] Last Admin: 06/08/18 08:37 Dose: 5 mg Artificial Tears (Liquitears 15ml Bottle) 2 drop EA EYE QID PRN PRN Reason: Dry Eyes Atorvastatin Calcium (Lipitor) 10 mg PO DAILY [facility] Last Admin: 06/08/18 10:45 Dose: 10 mg Benzonatate (Tessalon) 100 mg PO Q6H PRN PRN Reason: Cough Bisacodyl (Dulcolax) 10 mg PO DAILYPRN PRN PRN Reason: Constipation Calcium Carbonate (Tums) 1,000 mg PO Q4H PRN PRN Reason: Heartburn or Indigestion Cholestyramine Resin (Questran Light) 4 gm PO TID-[facility] Last Admin: 06/08/18 12:03 Dose: 4 gm Citalopram Hydrobromide (Celexa) 40 mg PO DAILY [facility] Last Admin: 06/08/18 11:31 Dose: 40 mg Clonidine (Catapres) 0.1 mg PO Q4H PRN PRN Reason: SBP > 160____ Famotidine (Pepcid) 20 mg PO BID [facility] Last Admin: 06/08/18 08:37 Dose: 20 mg Gabapentin (Neurontin) 300 mg PO TID [facility] Last Admin: 06/08/18 08:37 Dose: 300 mg Guaifenesin (Robitussin Sf) 200 mg PO Q4H PRN PRN Reason: Cough Hydralazine HCl (Apresoline) 10 mg SLOW IVP Q4H PRN PRN Reason: SBP > 180 and HR < 70 Loratadine (Claritin) 10 mg PO DAILY [facility] Last Admin: 06/08/18 10:45 Dose: 10 mg Losartan Potassium (Cozaar) 25 mg PO DAILY [facility] Last Admin: 06/08/18 10:45 Dose: 25 mg Melatonin (Melatonin) 6 mg PO HSPRN PRN PRN Reason: Insomnia Nitroglycerin (Nitrostat) 0.4 mg SL Q5MIN PRN PRN Reason: Chest Pain Ondansetron HCl (Zofran Odt) 4 mg PO Q6H PRN PRN Reason: Nausea/Vomiting Ondansetron HCl (Zofran) 4 mg IVP Q6H PRN PRN Reason: Nausea/Vomiting Senna/Docusate Sodium (Senokot S) 2 tab PO BID [facility] Last Admin: 06/08/18 10:45 Dose: Not Given Sodium Chloride ([place] Nasal [place] 0.65%) 0 ml EA NARE QIDPRN PRN PRN Reason: Nasal Congestion Tamsulosin HCl (Flomax) 0.4 mg PO DAILY [facility] Last Admin: 06/08/18 10:45 Dose: 0.4 mg Trazodone HCl (Desyrel) 50 mg PO HS [facility] Zolpidem Tartrate (Ambien) 5 mg PO HS [facility]
[2018-06-08] MEDS: Zolpidem Tartrate 5 MG TAB PO SCH (20:50)
[2018-06-08] MEDS: traZODone HCl 50 MG TAB PO SCH (20:50)
[2018-06-09] MEDS: Acetaminophen 325 MG TAB PO SCH ×5 (00:03→23:45)
[2018-06-09] MEDS: Famotidine 20 MG TAB PO SCH ×2 (08:54→21:09)
[2018-06-09] MEDS: Apixaban 5 MG TAB PO SCH ×2 (08:54→21:09)
[2018-06-09] MEDS: Losartan 25 MG TAB PO SCH (08:54)
[2018-06-09] MEDS: Senokot S 8.6-50 MG TAB PO SCH ×2 (08:54→21:09)
[2018-06-09] MEDS: Cholestyramine/Aspartame 4 gm Packet PO SCH ×3 (08:54→17:38)
[2018-06-09] MEDS: Atorvastatin Calcium 10 MG TAB PO SCH (08:55)
[2018-06-09] MEDS: Gabapentin 300 MG CAP PO SCH ×3 (08:55→21:09)
[2018-06-09] MEDS: HYDROcodone/Acetaminophen 10/325 mg Tablet PO SCH ×2 (08:55→21:09)
[2018-06-09] MEDS: Loratadine 10 MG TAB PO SCH (08:55)
[2018-06-09] MEDS: Citalopram 20 MG TAB PO SCH (08:55)
[2018-06-09] MEDS: Tamsulosin HCl 0.4 MG CAP PO SCH (08:56)
--- NOTE | 2018-06-09 12:04 | PDOC.PN ---
- Subjective Encounter Start Date: 06/09/18 Encounter Start Time: 12:02 Subjective: feels well. no new complaints - Objective Resuscitation Status - Order Detail: 06/07/18 18:54 Resuscitation Status Routine Resuscitation Status: FULL: Full Resuscitation Discussed with: discussed w pt AARON Reviewed: Yes Vital Signs & Weight: Vital Signs (12 hours) Temp Pulse Resp BP Pulse Ox 06/09/18 07:17 98.0 F 71 16 139/83 95 06/09/18 04:09 98.6 F 65 16 119/62 96 06/09/18 02:57 96 Weight Weight 204 lb 1.6 oz I&O: 06/08/18 06/09/18 06/10/18 06:59 06:59 06:59 Intake Total 240 1130 Output Total 340 1400 300 Balance -100 -270 -300 Result Diagrams: 06/08/18 04:26 06/08/18 04:26 Phys Exam - Physical Examination Constitutional: NAD HEENT: PERRLA, moist MMs, sclera anicteric, oral pharynx no lesions Neck: no nodes, no JVD, supple, full ROM Respiratory: no wheezing, no rales, no rhonchi, clear to auscultation bilateral Cardiovascular: RRR, no significant murmur Gastrointestinal: soft, non-tender, no distention, positive bowel sounds Musculoskeletal: no edema, pulses present Neurological: non-focal, normal sensation chr R sided spastic hemiparesis Psychiatric: normal affect, A&O x 3 Skin: no rash Dx/Plan (1) Pulmonary emboli Code(s): I26.99 - OTHER PULMONARY EMBOLISM WITHOUT ACUTE COR PULMONALE Status : Acute Comment: on OAC.Monitor H/h (2) Frequent falls Code(s): R29.6 - REPEATED FALLS Status: Acute Comment: rehab Placement pending (3) HTN (hypertension) Code(s): I10 - ESSENTIAL (PRIMARY) HYPERTENSION Status: Chronic (4) H/O: CVA (cerebrovascular accident) Code(s): Z86.73 - PRSNL HX OF TIA (TIA), AND CEREB INFRC W/O RESID DEFICITS Status: Chronic (5) Right spastic hemiparesis Code(s): G81.11 - SPASTIC HEMIPLEGIA AFFECTING RIGHT DOMINANT SIDE Status: Chronic - Plan PT/OT, DVT proph w/SCDs HD stable.cont eliquis for 3 months -: awaiting rehab placement -: avoidable day #2. -: pt high risk of fall & life threatening bleeding on OAC if goes home -: am labs * . Review of Systems - Review of Systems Constitutional: negative: fever, chills, sweats, weakness, malaise, other ENT: negative: Ear Pain, Ear Discharge, Nose Pain, Nose Discharge, Nose Congestion, Mouth Pain, Mouth Swelling, Throat Pain, Throat Swelling, Other Respiratory: negative: Cough, Dry, Shortness of Breath, Hemoptysis, SOB with Excertion, Pleuritic Pain, Sputum, Wheezing Cardiovascular: negative: chest pain, palpitations, orthopnea, paroxysmal nocturnal dyspnea, edema, light headedness, other Gastrointestinal: negative: Nausea, Vomiting, Abdominal Pain, Diarrhea, Constipation, Melena, Hematochezia, Other Genitourinary: negative: Dysuria, Frequency, Incontinence, Hematuria, Retention , Other Musculoskeletal: negative: Neck Pain, Shoulder Pain, Arm Pain, Back Pain, Hand Pain, Leg Pain, Foot Pain, Other Skin: negative: Rash, Lesions, Isaac, Bruising, Other Neurological: Weakness (chronic right sided weakness). negative: Numbness, Incoordination, Change in Speech, Confusion, Seizures, Other - Medications/Allergies Allergies/Adverse Reactions: Allergies Allergy/AdvReac Type Severity Reaction Status Date / Time No Known Allergies Allergy Unverified 09/05/12 22:16 Medications: Current Medications Acetaminophen (Tylenol) 650 mg PO Q4H PRN PRN Reason: Headache/Fever/Mild Pain (1-3) Acetaminophen (Tylenol) 650 mg PO Q6HR [facility] Last Admin: 06/09/18 05:43 Dose: 650 mg Hydrocodone Bitart/Acetaminophen ([place] 5/325) 1 tab PO Q4H PRN PRN Reason: Moderate Pain (4-6) Last Admin: 06/08/18 08:53 Dose: 1 tab Hydrocodone Bitart/Acetaminophen ([place] 10/325) 1 tab PO Q12HR [facility] Last Admin: 06/09/18 08:55 Dose: 1 tab Apixaban (Eliquis) 5 mg PO BID [facility] Last Admin: 06/09/18 08:54 Dose: 5 mg Artificial Tears (Liquitears 15ml Bottle) 2 drop EA EYE QID PRN PRN Reason: Dry Eyes Atorvastatin Calcium (Lipitor) 10 mg PO DAILY [facility] Last Admin: 06/09/18 08:55 Dose: 10 mg Benzonatate (Tessalon) 100 mg PO Q6H PRN PRN Reason: Cough Bisacodyl (Dulcolax) 10 mg PO DAILYPRN PRN PRN Reason: Constipation Calcium Carbonate (Tums) 1,000 mg PO Q4H PRN PRN Reason: Heartburn or Indigestion Cholestyramine Resin (Questran Light) 4 gm PO TID-[facility] Last Admin: 06/09/18 08:54 Dose: 4 gm Citalopram Hydrobromide (Celexa) 40 mg PO DAILY [facility] Last Admin: 06/09/18 08:55 Dose: 40 mg Clonidine (Catapres) 0.1 mg PO Q4H PRN PRN Reason: SBP > 160____ Famotidine (Pepcid) 20 mg PO BID [facility] Last Admin: 06/09/18 08:54 Dose: 20 mg Gabapentin (Neurontin) 300 mg PO TID [facility] Last Admin: 06/09/18 08:55 Dose: 300 mg Guaifenesin (Robitussin Sf) 200 mg PO Q4H PRN PRN Reason: Cough Hydralazine HCl (Apresoline) 10 mg SLOW IVP Q4H PRN PRN Reason: SBP > 180 and HR < 70 Loratadine (Claritin) 10 mg PO DAILY [facility] Last Admin: 06/09/18 08:55 Dose: 10 mg Losartan Potassium (Cozaar) 25 mg PO DAILY [facility] Last Admin: 06/09/18 08:54 Dose: 25 mg Melatonin (Melatonin) 6 mg PO HSPRN PRN PRN Reason: Insomnia Nitroglycerin (Nitrostat) 0.4 mg SL Q5MIN PRN PRN Reason: Chest Pain Ondansetron HCl (Zofran Odt) 4 mg PO Q6H PRN PRN Reason: Nausea/Vomiting Ondansetron HCl (Zofran) 4 mg IVP Q6H PRN PRN Reason: Nausea/Vomiting Senna/Docusate Sodium (Senokot S) 2 tab PO BID [facility] Last Admin: 06/09/18 08:54 Dose: 2 tab Sodium Chloride ([place] Nasal [place] 0.65%) 0 ml EA NARE QIDPRN PRN PRN Reason: Nasal Congestion Tamsulosin HCl (Flomax) 0.4 mg PO DAILY [facility] Last Admin: 06/09/18 08:56 Dose: 0.4 mg Trazodone HCl (Desyrel) 50 mg PO HS [facility] Last Admin: 06/08/18 20:50 Dose: 50 mg Zolpidem Tartrate (Ambien) 5 mg PO HS [facility] Last Admin: 06/08/18 20:50 Dose: 5 mg
[2018-06-09] MEDS: Zolpidem Tartrate 5 MG TAB PO SCH (21:09)
[2018-06-09] MEDS: traZODone HCl 50 MG TAB PO SCH (21:09)
[2018-06-10 04:59] LABS: Hemoglobin 12.7 g/dL (14.0-18.0)
[2018-06-10] MEDS: Acetaminophen 325 MG TAB PO SCH ×2 (05:59→12:32)
[2018-06-10] MEDS: Citalopram 20 MG TAB PO SCH (09:22)
[2018-06-10] MEDS: Famotidine 20 MG TAB PO SCH (09:22)
[2018-06-10] MEDS: Gabapentin 300 MG CAP PO SCH (09:22)
[2018-06-10] MEDS: Apixaban 5 MG TAB PO SCH (09:22)
[2018-06-10] MEDS: Cholestyramine/Aspartame 4 gm Packet PO SCH ×2 (09:22→12:32)
[2018-06-10] MEDS: Atorvastatin Calcium 10 MG TAB PO SCH (09:22)
[2018-06-10] MEDS: HYDROcodone/Acetaminophen 10/325 mg Tablet PO SCH (09:23)
[2018-06-10] MEDS: Senokot S 8.6-50 MG TAB PO SCH (09:24)
[2018-06-10] MEDS: Losartan 25 MG TAB PO SCH (09:24)
[2018-06-10] MEDS: Loratadine 10 MG TAB PO SCH (09:24)
[2018-06-10] MEDS: Tamsulosin HCl 0.4 MG CAP PO SCH (09:24)
[2018-06-10 11:55] VITALS: BP 137/73; TEMP 98.7
--- NOTE | 2018-06-10 14:32 | DIS ---
DATE OF ADMISSION: 06/07/2018 DATE OF DISCHARGE: 06/10/2018 PRIMARY CARE PHYSICIAN: Dr. Stefano Casas. DISCHARGE DISPOSITION: Home with Home Health, [facility]. DISCHARGE DIAGNOSES: 1. Pulmonary embolism. 2. Frequent falls. 3. 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 4. Hypertension. DISCHARGE MEDICATIONS: New medication: Eliquis 5 mg p.o. b.i.d. Discontinued medications: Aspirin and ibuprofen. Continue home medications as follows: 1. Trazodone 50 mg at bedtime. 2. Ambien 5 mg at bedtime p.r.n. 3. Tamsulosin 0.4 mg daily. 4. Senokot p.r.n. 5. Promethazine p.r.n. 6. Melatonin p.r.n. 7. Losartan 25 mg daily. 8. Claritin p.r.n. 9. Jeff p.r.n. 10. Neurontin 300 mg p.o. t.i.d. 11. Celexa 40 mg daily. 12. Cholestyramine 4 g p.o. t.i.d. 13. Lipitor 10 mg daily. 14. Artificial Tears daily. CONSULTATIONS IN THE HOSPITAL: None. PROCEDURES DONE IN THE HOSPITAL: 1. Hip x-ray, which shows placement of three internal fixation screws stabilizing a femoral neck fracture without any significant changes. 2. Lumbar spinal x-ray which does not show any acute osseous abnormality. Degenerative changes are seen. 3. CT angio of the thorax which shows small pulmonary embolism in the subsegmental left lower lobe pulmonary artery. HISTORY OF PRESENTING ILLNESS: Mr. Palmer is a pleasant 63-year-old male, who was admitted on 06/07/2018 for complaints of frequent falls at home. He was recently admitted to trauma services after a fall and has undergone fixation of femur fracture. At that time, he was discharged to [facility], but he checked himself out of there and went home and fell again. He was brought into the emergency room for placement, where he was incidentally found to have elevated D-dimer, prompting a CT angio. The CT angio showed small pulmonary embolism. He was given Lovenox at 1 mg/kg dosing and was admitted to medical services for placement and for treatment of the PE. Please see admission history and physical dictated by myself from the date of admission. HOSPITAL COURSE: The patient's hospital course was uneventful. He was transitioned to oral anticoagulation with Eliquis. Coupons were provided. The catalytic case operator first thought that he could be placed in the inpatient rehab after insurance preauthorization, but I was told this morning that this would not be possible. The patient will likely need to go to a skilled rehab and the process will need to be started all over again. The patient however at this time refused any placement and would rather go home. Home health was arranged for him. I have seen and examined him this morning and discharge plan was discussed with him. He verbalizes understanding. PHYSICAL EXAMINATION: VITAL SIGNS: This morning, vital signs, temperature 98.7, pulse of 64, respirations 18, saturating 94% to 97% on room air, and blood pressure 137/73. GENERAL: No acute distress. Awake, alert, and oriented x3. CHEST: Clear to auscultation bilaterally. HEART: Rate and rhythm are regular. He is instructed to follow up with primary care physician, Dr. Casas, in 1 to 2 weeks and take the Eliquis for at least 3 months. He was given prescription coupons from the hospital, but would need to renew the coupons after the month is done. Otherwise, three months worth of prescriptions for Eliquis was also provided to him. Job ID: [id number]
--- NOTE | 2018-06-20 15:24 | EKG ---
Test Reason : Blood Pressure : / mmHG Vent. Rate : 063 BPM Atrial Rate : 063 BPM P-R Int : 254 ms QRS Dur : 116 ms QT Int : 432 ms P-R-T Axes : 051 030 031 degrees QTc Int : 442 ms Sinus rhythm with 1st degree A-V block Incomplete right bundle branch block Borderline ECG Confirmed by ELIGIO VILLANUEVA D.O. ([id number]), publications editor BRIAN ROSALES ([id number]) on 06/20/2018 3:24:38 PM Referred By: Confirmed By:ELIGIO VILLANUEVA D.O.
== END 2018-06-10 13:55 | disposition home or self-care (01) ==
LOC: ERS 14:06 → 2NO 19:21 → 2SW 20:52
PROVIDERS: ADMIT Internal Medicine; ATTEND Internal Medicine
DX: I26.99 Other pulmonary embolism without acute cor pulmonale (principal); E78.5 Hyperlipidemia, unspecified; I69.351 Hemiplegia and hemiparesis following cerebral infarction affecting right dominant side; I10 Essential (primary) hypertension; R29.6 Repeated falls; Z87.820 Personal history of traumatic brain injury; Z79.899 Other long term (current) drug therapy; Z98.890 Other specified postprocedural states
CPT/HCPCS: 71275; 72100; 73502; 80048; 80053; 81003; 83880; 84484; 85014; 85018; 85025 ×2; 85379; 93005; 96372; 96374; 97110; 97116 ×3; 97139 ×3; 97530; 99291; G0378 ×3; 36415; 96361; J1650; J2405; Q9966

== ENCOUNTER 2019-05-18 08:55 | Inpatient (IN) | payer MEDICARE ==
[2019-05-18 09:16] LABS: #Basophils 0.1 thou/uL (0.0-0.2); #Eosinphils 0.1 thou/uL (0.0-0.7); #Lymphocytes 1.4 thou/uL (1.20-3.40); #Monocytes 0.5 thou/uL (0.11-0.59); #Neutrophils 3.9 thou/uL (1.40-6.50); %Basophils 1.5 % (0.0-1.0); %Eosinophils 2.3 % (0.0-10.0); %Lymphocytes 22.8 % (21.0-51.0); %Monocytes 8.8 % (0.0-10.0); %Neutrophils 64.7 % (42.0-75.0); Hemoglobin 14.4 g/dL (14.0-18.0); Mean Corpuscular HGB CONC 33.1 g/dL (32.0-36.0); Mean Corpuscular Hemoglobin 30.1 pg (27.0-31.0); Mean Corpuscular Volume 90.8 fL (78.0-98.0); Mean Platelet Volume 9.5 fL (7.4-10.4); Platelet Count 178 thou/uL (130-400); RBC Distribution Width 12.4 % (11.5-14.5); Red Blood Cell (RBC) Count 4.79 mill/uL (4.70-6.10)
--- NOTE | 2019-05-18 09:21 | RAD ---
Exam: Chest one view HISTORY:Chest pain. Comparison: 05/27/2018 FINDINGS: Cardiac silhouette: Normal Aorta: Unremarkable Pulmonary vessels: Normal Costophrenic angles: Clear LUNGS: No masses or consolidation. Pneumothorax: None Osseous abnormalities: None Incidentals: 2 densities project over the right sternoclavicular region. Correlate for possible forei gn body. IMPRESSION: 1. No acute cardiopulmonary process. 2. Possible foreign bodies projecting over the right sternoclavicular region. Correlate clinically.
[2019-05-18 09:45] LABS: ALT (SGPT) 11 U/L (8-55); AST (SGOT) 10 U/L (5-34); Alkaline Phosphatase 58 U/L (40-110); Anion Gap 11 mmol/L (10-20); BUN (Urea Nitrogen) 15 mg/dL (8.4-25.7); Bilirubin, Total 0.7 mg/dL (0.2-1.2); Calc. Creatinine Clearance 0 mL/min (70-130); Calcium 8.8 mg/dL (7.8-10.44); Carbon Dioxide 23 mmol/L (23-31); Chloride 111 mmol/L (98-107); Estimated GFR-MDRD 80; Globulin 2.3 g/dL (2.4-3.5); Glucose 103 mg/dL (80-115); Potassium 4.1 mmol/L (3.5-5.1); Protein, Total 6.3 g/dL (5.8-8.1); Sodium 141 mmol/L (136-145)
[2019-05-18] MEDS ORDERED: Adacel (T-DAP) 0.5 ML SYRINGE ONE (10:33)
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
[2019-05-18 13:07] LABS: Troponin I 0.257 ng/mL (< 0.028)
[2019-05-18] MEDS ORDERED: Ondansetron ODT 4 MG TAB PO PRN (13:33)
[2019-05-18] MEDS ORDERED: Ondansetron PF 4 MG/2 ML Vial IVP PRN (13:33)
[2019-05-18] MEDS ORDERED: Aspirin 325 mg Enteric Coated Tablet PO SCH (13:45)
[2019-05-18] MEDS: Acetaminophen 325 MG TAB PO PRN ×2 (14:04→21:01)
[2019-05-18 15:16] LABS: Hemoglobin A1c 5.4 % (4.0-6.0)
[2019-05-18] MEDS: Nitroglycerin 2% Ointment 1 INCH/1 GM Packet TOP SCH ×2 (15:16→21:01)
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
[2019-05-18 15:32] LABS: Phosphorus 3.2 mg/dL (2.3-4.7)
[2019-05-18 15:47] LABS: Troponin I 0.308 ng/mL (< 0.028)
[2019-05-18] MEDS ORDERED: HYDROcodone/Acetaminophen 10/325 mg Tablet PO PRN (17:51)
[2019-05-18 18:42] LABS: Troponin I 0.401 ng/mL (< 0.028)
[2019-05-18] MEDS: traZODone HCl 50 MG TAB PO SCH (21:00)
[2019-05-18] MEDS: Zolpidem Tartrate 5 MG TAB PO SCH (21:01)
[2019-05-18] MEDS: Dicyclomine 20 MG TAB PO SCH (21:01)
[2019-05-18] MEDS: Atorvastatin Calcium 40 MG TAB PO SCH (21:01)
[2019-05-18] MEDS: Famotidine 20 MG TAB PO SCH (21:01)
[2019-05-18 21:29] LABS: Critical Call Chem Troponin I RESULT DECREASING; Troponin I 0.326 ng/mL (< 0.028)
[2019-05-19 04:52] LABS: Cardiac Risk 4.1 (Less than 4.5)
[2019-05-19] MEDS: Dicyclomine 20 MG TAB PO SCH ×3 (06:04→20:55)
[2019-05-19] MEDS: Losartan 25 MG TAB PO SCH (06:04)
[2019-05-19] MEDS: Citalopram 20 MG TAB PO SCH (06:05)
[2019-05-19] MEDS: Nitroglycerin 2% Ointment 1 INCH/1 GM Packet TOP SCH ×3 (06:05→20:55)
[2019-05-19] MEDS: Aspirin 325 mg Enteric Coated Tablet PO SCH (06:05)
[2019-05-19] MEDS: Famotidine 20 MG TAB PO SCH ×2 (06:05→20:54)
--- NOTE | 2019-05-19 06:18 | PDOC.FM ---
- Subjective Subjective: Mr. Palmer is feeling well this morning. Is asymptomatic when at rest. Currently denies any CP, SOB. Awaiting cath this am. Daughter present in room. - Objective MAR Reviewed: Yes Vital Signs & Weight: Vital Signs (12 hours) Temp Pulse Resp BP Pulse Ox 05/19/19 03:45 97.7 F 69 20 106/61 95 05/18/19 20:00 98.2 F 75 18 117/67 96 Weight Weight 89.131 kg Result Diagrams: 05/20/19 17:22 05/20/19 17:22 Phys Exam - Physical Examination Constitutional: NAD Respiratory: clear to auscultation bilateral Cardiovascular: RRR, no significant murmur Gastrointestinal: soft, non-tender Musculoskeletal: no edema Neurological: non-focal Psychiatric: normal affect Skin: normal turgor Dx/Plan (1) NSTEMI (non-ST elevated myocardial infarction) Code(s): I21.4 - NON-ST ELEVATION (NSTEMI) MYOCARDIAL INFARCTION Status: Acute (2) HLD (hyperlipidemia) Code(s): E78.5 - HYPERLIPIDEMIA, UNSPECIFIED Status: Acute Qualifiers: Hyperlipidemia type: mixed hyperlipidemia Qualified Code(s): E78.2 - Mixed hyperlipidemia (3) Pulmonary emboli Code(s): I26.99 - OTHER PULMONARY EMBOLISM WITHOUT ACUTE COR PULMONALE Status : Acute (4) H/O: CVA (cerebrovascular accident) Code(s): Z86.73 - PRSNL HX OF TIA (TIA), AND CEREB INFRC W/O RESID DEFICITS Status: Chronic (5) HTN (hypertension) Code(s): I10 - ESSENTIAL (PRIMARY) HYPERTENSION Status: Chronic Qualifiers: Hypertension type: unspecified Qualified Code(s): I10 - Essential (primary ) hypertension (6) Right spastic hemiparesis Code(s): G81.11 - SPASTIC HEMIPLEGIA AFFECTING RIGHT DOMINANT SIDE Status: Chronic - Plan Plan: Patient is a 64 yo male with PMHx of CVA, HTN, HLD who presents with chest pain: #NSTEMI -ST elevations in leads II, III, aVF seen on initial EKG with EMS -repeat EKG at this facility showed T wave inversions in III, aVF -trop 0.05->.3->.4-> .3 -Cardiology consulted - Dr. Mina, plan for cath today -Continue ASA, hold lovenox for procedure this am #Right-sided Hemiparesis -s/p CVA x 2 in 1988 with persistent right UE contracture and right sided weakness in UE, LE at baseline -continue to monitor for any new deficits #HTN -continue home Losartan #HLD -continue home Atorvastatin Diet: Heart Healthy VTE: Lovenox, SCDs Code status: DNR-DNI PCP-CC: Dr. Stefano Casas Dispo: Stable, cath today Addendum - Attending - Attending Attestation Date/Time: 05/20/192104 I personally evaluated the patient and discussed the management with Dr. Morales on 05/19/2019 I agree with the History, Examination, Assessment and Plan documented above with any addition or exceptions noted below- Patient without complaints. No furyher chest oain. afebrile VSS A/P: 1) NSTEMI- just returned from cath; will review results 2) HTN- well controlled
[2019-05-19] MEDS ORDERED: Fentanyl 100 MCG/2 ML VIAL ONE (08:56)
[2019-05-19] MEDS ORDERED: Midazolam HCl 2 mg/2 ml Vial ONE (08:57)
[2019-05-19] MEDS ORDERED: Enoxaparin Sodium 40 MG/0.4 ML SYRINGE SC SCH ×2 (09:00)
[2019-05-19] MEDS ORDERED: Lidocaine 1% (PF) 30 ML VIAL ONE (09:05)
[2019-05-19] MEDS ORDERED: Iopamidol 370 76% 100 ML VIAL ONE (09:37)
[2019-05-19] MEDS ORDERED: Acetaminophen/Codeine 30-300mg Tablet PO PRN ×2 (09:57)
[2019-05-19] MEDS ORDERED: Sodium Chloride 0.9% 200 ML IV PRN (09:57)
[2019-05-19] MEDS ORDERED: Nitroglycerin 0.4 MG TAB (25 Tab Bottle) SL PRN (09:57)
[2019-05-19] MEDS ORDERED: Communication Order-Pharmacy FS SCH (11:56)
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
[2019-05-19] MEDS: Acetaminophen 325 MG TAB PO PRN (18:39)
[2019-05-19] MEDS: Atorvastatin Calcium 40 MG TAB PO SCH (20:54)
[2019-05-19] MEDS: Zolpidem Tartrate 5 MG TAB PO SCH (20:54)
[2019-05-19] MEDS: traZODone HCl 50 MG TAB PO SCH (20:54)
[2019-05-20] MEDS: Aspirin 325 mg Enteric Coated Tablet PO SCH (04:56)
[2019-05-20] MEDS: Nitroglycerin 2% Ointment 1 INCH/1 GM Packet TOP SCH (04:56)
[2019-05-20] MEDS: Losartan 25 MG TAB PO SCH (05:39)
[2019-05-20] MEDS: Citalopram 20 MG TAB PO SCH (05:40)
[2019-05-20] MEDS: Dicyclomine 20 MG TAB PO SCH (05:40)
[2019-05-20] MEDS: Famotidine 20 MG TAB PO SCH (05:40)
[2019-05-20] MEDS ORDERED: Albumin 5% 500 ML ONE (06:31)
[2019-05-20] MEDS ORDERED: Heparin 10,000 UNITS/1 ML VIAL 30,000 UNITS in Sodium Chloride 0.9% 1,000 ML FS SCH (06:45)
[2019-05-20] MEDS ORDERED: Midazolam HCl 5 mg/5 ml Vial ONE (06:48)
[2019-05-20] MEDS ORDERED: Fentanyl 250 MCG/5 ML VIAL ONE (06:48)
[2019-05-20] MEDS ORDERED: Dexmedetomidine 200 MCG/2 ML VIAL ONE (06:49)
--- NOTE | 2019-05-20 06:49 | PDOC.FM ---
- Subjective Subjective: Mr. Palmer now s/p CABG. Saw him shortly after return from recovery. He was laying in bed moaning with pain. Nursing working on pain med administration. - Objective Vital Signs & Weight: Vital Signs (12 hours) Temp Pulse Resp BP Pulse Ox 05/20/19 03:08 99.6 F 77 20 112/64 95 05/19/19 23:42 98.0 F 82 20 119/85 95 05/19/19 20:00 97 05/19/19 19:39 98.6 F 70 18 123/62 97 Weight Admit Weight 89.131 kg Weight 89.131 kg I&O: 05/18/19 05/19/19 05/20/19 06:59 06:59 06:59 Intake Total 1901 Output Total 600 Balance 1301 Result Diagrams: 05/20/19 17:22 05/20/19 17:22 Phys Exam - Physical Examination in pain Respiratory: clear to auscultation bilateral Cardiovascular: RRR, no significant murmur Gastrointestinal: soft Musculoskeletal: no edema Skin: normal turgor Dx/Plan (1) NSTEMI (non-ST elevated myocardial infarction) Code(s): I21.4 - NON-ST ELEVATION (NSTEMI) MYOCARDIAL INFARCTION Status: Acute (2) HLD (hyperlipidemia) Code(s): E78.5 - HYPERLIPIDEMIA, UNSPECIFIED Status: Acute Qualifiers: Hyperlipidemia type: mixed hyperlipidemia Qualified Code(s): E78.2 - Mixed hyperlipidemia (3) Pulmonary emboli Code(s): I26.99 - OTHER PULMONARY EMBOLISM WITHOUT ACUTE COR PULMONALE Status : Acute (4) H/O: CVA (cerebrovascular accident) Code(s): Z86.73 - PRSNL HX OF TIA (TIA), AND CEREB INFRC W/O RESID DEFICITS Status: Chronic (5) HTN (hypertension) Code(s): I10 - ESSENTIAL (PRIMARY) HYPERTENSION Status: Chronic Qualifiers: Hypertension type: unspecified Qualified Code(s): I10 - Essential (primary ) hypertension (6) Right spastic hemiparesis Code(s): G81.11 - SPASTIC HEMIPLEGIA AFFECTING RIGHT DOMINANT SIDE Status: Chronic - Plan Plan: Patient is a 64 yo male with PMHx of CVA, HTN, HLD who presents with chest pain: #NSTEMI with multivessel CAD now s/p CABG -trop 0.05->.3->.4-> .3 -Cardiology consulted - Dr. Mina. Cath 05/18 with significant occlusions -Dr. Mojica consulted - CABG 05/19. #Right-sided Hemiparesis -s/p CVA x 2 in 1988 with persistent right UE contracture and right sided weakness in UE, LE at baseline -continue to monitor for any new deficits #HTN -continue home Losartan #HLD -continue home Atorvastatin Code status: DNR-DNI PCP-CC: Dr. Stefano Casas Dispo: CABG done today. Postop management per Dr. Mojica. Addendum - Attending - Attending Attestation Date/Time: 05/20/192109 I personally evaluated the patient and discussed the management with Dr. Morales I agree with the History, Examination, Assessment and Plan documented above with any addition or exceptions noted below- Patient c/o pain. Afebrile VSS A/P : 1) S/P CABG- plans as per CV surgery, 2) NSTEMI- stable
[2019-05-20] MEDS ORDERED: Midazolam HCl 2 mg/2 ml Vial ONE (07:08)
[2019-05-20] MEDS ORDERED: Ondansetron PF 4 MG/2 ML Vial ONE (09:24)
[2019-05-20] MEDS ORDERED: Heparin 5,000 UNITS/ML VIAL ONE (09:24)
[2019-05-20] MEDS ORDERED: Heparin 30,000 units/30 ml VIAL ONE (09:24)
[2019-05-20] MEDS ORDERED: Lidocaine 2% PF 5 ML VIAL ONE (09:24)
[2019-05-20] MEDS ORDERED: Sodium Bicarb 50 MEQ/50 ML Abboject 8.4% SYRINGE ONE (09:24)
[2019-05-20] MEDS ORDERED: Vecuronium 10 MG VIAL ONE (09:24)
[2019-05-20] MEDS ORDERED: Cardioplegic Soln 1,000 ML BAG ONE (09:24)
[2019-05-20] MEDS ORDERED: Papaverine 60 MG/2 ML VIAL ONE (09:24)
[2019-05-20] MEDS ORDERED: Lidocaine 1% PF 5 ML VIAL ONE (09:24)
[2019-05-20] MEDS ORDERED: Calcium Chloride 1 GM/10 ML Abboject SYRINGE ONE (09:24)
[2019-05-20] MEDS ORDERED: Magnesium Sulfate 1 GM/2 ML VIAL ONE (09:24)
[2019-05-20] MEDS ORDERED: Nitroglycerin 50 MG/250 ML BOT ONE (09:24)
[2019-05-20] MEDS ORDERED: PROPOFOL 200 MG/20 ML VIAL ONE (09:24)
[2019-05-20] MEDS ORDERED: Norepinephrine 4 MG/4 ML VIAL ONE (09:24)
[2019-05-20] MEDS ORDERED: Potassium Chloride 60 MEQ/30 ML VIAL ONE (09:24)
[2019-05-20] MEDS ORDERED: Glycopyrrolate 0.2 MG/ML 5 ML SYRINGE ONE (09:24)
[2019-05-20] MEDS ORDERED: Thrombin 5000 UNITS/5 ML VIAL ONE (09:24)
[2019-05-20] MEDS ORDERED: Aminocaproic Acid 5 GM/20 ML VIAL ONE (09:24)
[2019-05-20] MEDS ORDERED: Protamine Sulfate 250 MG/25 ML VIAL ONE (09:24)
[2019-05-20] MEDS ORDERED: PHENYLEPHRINE-NS 100 MCG/ML 10 ML SYRINGE ONE (10:25)
[2019-05-20] MEDS ORDERED: Mag-Al 1200 mg/1200 mg/30 ML UDCUP PO PRN (11:29)
[2019-05-20] MEDS ORDERED: Fentanyl 100 MCG/2 ML VIAL SLOW IVP PRN (11:29)
[2019-05-20] MEDS ORDERED: DOPamine 400 MG/D5W 250 ML 250 ML IVPB PRN (11:29)
[2019-05-20] MEDS ORDERED: hydrALAZINE 20 MG/ML VIAL SLOW IVP PRN (11:29)
[2019-05-20] MEDS ORDERED: Bisacodyl 10 MG SUPP PR PRN (11:29)
[2019-05-20] MEDS ORDERED: Acetaminophen 325 MG TAB PO PRN (11:29)
[2019-05-20] MEDS ORDERED: Bisacodyl 5 MG TAB PO PRN (11:29)
[2019-05-20] MEDS ORDERED: Potassium Chloride 20 MEQ/100 ML PREMIX BAG IVPB PRN (11:29)
[2019-05-20] MEDS ORDERED: Promethazine HCl 25 MG/ML VIAL IM PRN (11:29)
[2019-05-20] MEDS ORDERED: Nitroglycerin 50 MG/250 ML BOT 250 ML IVPB PRN (11:29)
[2019-05-20] MEDS ORDERED: Norepinephrine 8 MG/0.9% NS 250 ML IVPB PRN (11:29)
[2019-05-20] MEDS ORDERED: Morphine 2 MG/ML SYRINGE SLOW IVP PRN (11:29)
[2019-05-20] MEDS ORDERED: Hetastarch 6% 500 ML 500 ML IVPB PRN (11:29)
[2019-05-20] MEDS ORDERED: Post-Op Insulin Drip Protocol IVPB ONE (11:29)
[2019-05-20] MEDS ORDERED: niCARdipine 25 MG in Sodium Chloride 0.9% 250 ML 250 ML IVPB PRN (11:29)
[2019-05-20] MEDS ORDERED: Magnesium 2 GM/50 ML 2 GM in Premix Bag 1 BAG IVPB SCH (11:30)
[2019-05-20] MEDS ORDERED: Dextrose 5% in Water 1,000 ML IV PRN (11:40)
[2019-05-20] MEDS ORDERED: Dextrose 50% Abboject 50 ML SYRINGE SLOW IVP PRN (11:40)
[2019-05-20] MEDS ORDERED: HUMULIN R 100 UNITS in Sodium Chloride 0.9% 100 ML IVPB SCH (11:40)
[2019-05-20] MEDS: Fentanyl 100 MCG/2 ML VIAL SLOW IVP PRN ×4 (12:05→23:56)
[2019-05-20] MEDS: Ketorolac Tromethamine 30 MG/ML VIAL IVP SCH ×3 (12:10→23:04)
--- NOTE | 2019-05-20 12:17 | RAD ---
CHEST 1 VIEW: Date: 05/20/2019 HISTORY: Post open heart surgery. COMPARISON: Radiograph from 2 days prior. FINDINGS: The right subclavian central venous catheter tip is poorly evaluated due to rightward patient rotatio n. Thoracostomy tube is in place. Mediastinal drains are in place. The heart size is enlarged, as wel l as the mediastinum. No significant pneumothorax is appreciated. IMPRESSION: Limited exam due to rightward patient rotation. Uncomplicated postoperative findings. POS: HOME
[2019-05-20] MEDS: Lactated Ringer's 1,000 ML IV SCH ×2 (12:28→22:11)
[2019-05-20] MEDS: Insulin Regular 300 UNITS/3 ML VIAL SC PRN ×4 (12:28→23:51)
[2019-05-20 12:38] LABS: INR-International Normal Ratio 1.3; Prothrombin Time 16.2 SEC (12.0-14.7)
[2019-05-20 12:39] LABS: PTT 27.7 SEC (22.9-36.1)
[2019-05-20 12:43] LABS: Anion Gap 8 mmol/L (10-20); BUN (Urea Nitrogen) 11 mg/dL (8.4-25.7); Calc. Creatinine Clearance 116 mL/min (70-130); Carbon Dioxide 23 mmol/L (23-31); Chloride 113 mmol/L (98-107); Estimated GFR-MDRD Greater than 90; Glucose 153 mg/dL (80-115); Potassium 4.2 mmol/L (3.5-5.1); Sodium 140 mmol/L (136-145)
[2019-05-20 12:48] LABS: #Basophils 0.1 thou/uL (0.0-0.2); #Eosinphils 0.1 thou/uL (0.0-0.7); #Lymphocytes 0.7 thou/uL (1.20-3.40); #Monocytes 0.5 thou/uL (0.11-0.59); #Neutrophils 7.4 thou/uL (1.40-6.50); %Basophils 0.6 % (0.0-1.0); %Eosinophils 0.8 % (0.0-10.0); %Lymphocytes 8.3 % (21.0-51.0); %Monocytes 5.5 % (0.0-10.0); %Neutrophils 84.9 % (42.0-75.0); Hemoglobin 12.3 g/dL (14.0-18.0); Mean Corpuscular HGB CONC 32.8 g/dL (32.0-36.0); Mean Corpuscular Hemoglobin 29.9 pg (27.0-31.0); Mean Corpuscular Volume 90.9 fL (78.0-98.0); Mean Platelet Volume 9.5 fL (7.4-10.4); Platelet Count 109 thou/uL (130-400); RBC Distribution Width 12.2 % (11.5-14.5); Red Blood Cell (RBC) Count 4.11 mill/uL (4.70-6.10); White Blood Cell (WBC) Count 8.7 thou/uL (4.8-10.8)
--- NOTE | 2019-05-20 13:04 | OP ---
DATE OF PROCEDURE: 05/20/2019 PREOPERATIVE DIAGNOSIS: Coronary artery disease, status post non-ST elevation myocardial infarction. PROCEDURE PERFORMED: Coronary artery bypass graft x3, left internal mammary artery to a 1.5 to 2 mm left anterior descending, saphenous vein to a 1.5 mm posterior descending artery and a 1.5 mm posterolateral. ASSISTANTS: 1. Dr. Sinha. 2. Dr. Hurd. TRANSFUSION: None. DESCRIPTION OF PROCEDURE: After adequate anesthesia had been obtained, endovascular vein harvest of the left greater saphenous vein was performed while I performed a median sternotomy. The left internal mammary artery was harvested. The left pleura was entered at the apex. Lungs were somewhat hyperinflated and met in the midline. Following heparinization, the mammary was divided distally and passed posterior to the thymus gland. Aorta and right atrium were cannulated with the patient then being placed on cardiopulmonary bypass. Vessels were inspected for grafting. The aorta was cross-clamped and a liter of cold blood cardioplegia given through the aortic root. Following this, the 3 distal anastomoses were completed, end-to-side anastomosis on all three. Following this, the cross-clamp was removed and the partial occluding clamp placed. The PDA vein graft was anastomosed to the aortic root. The partial occluding clamp was then removed and the posterolateral vein graft was then anastomosed to the side of the PDA vein graft in the vicinity of the acute margin of the heart. Following this, the distal anastomoses were inspected. The patient was then weaned from cardiopulmonary bypass. Cannula was removed and protamine was given systemically. All suture lines were inspected for hemostasis after decannulation and reinforcing the aortic cannulation site with a 4-0 Prolene suture. Mediastinal and left pleural drains were placed, following which the sternum was reapproximated with #7 interrupted wire. Vancomycin paste was used on the sternal edges, platelet-rich blood and platelet-poor plasma. Subcutaneous tissue and skin were closed in layers. Job ID: [id number]
[2019-05-20] MEDS: CEFAZOLIN 2 GM in Premix Bag 1 BAG IVPB SCH ×2 (13:55→22:08)
[2019-05-20] MEDS: Ondansetron PF 4 MG/2 ML Vial IVP PRN (14:44)
[2019-05-20] MEDS: HYDROcodone/Acetaminophen 5/325 mg Tablet PO PRN ×2 (15:49→19:28)
[2019-05-20 17:26] LABS: Hemoglobin 12.2 g/dL (14.0-18.0)
[2019-05-20 17:41] LABS: Potassium 4.2 mmol/L (3.5-5.1)
[2019-05-20] MEDS: Famotidine/PF 20 mg/2ml Vial SLOW IVP SCH (19:29)
[2019-05-20] MEDS: Atorvastatin Calcium 40 MG TAB PO SCH (19:29)
[2019-05-21] MEDS: Fentanyl 100 MCG/2 ML VIAL SLOW IVP PRN ×2 (04:22→17:30)
[2019-05-21] MEDS: Ondansetron PF 4 MG/2 ML Vial IVP PRN (04:31)
[2019-05-21 04:33] LABS: #Basophils 0.1 thou/uL (0.0-0.2); #Neutrophils 5.7 thou/uL (1.40-6.50); %Basophils 0.9 % (0.0-1.0); %Eosinophils 0.2 % (0.0-10.0); %Lymphocytes 13.2 % (21.0-51.0); %Monocytes 12.6 % (0.0-10.0); %Neutrophils 73.1 % (42.0-75.0); Hemoglobin 11.3 g/dL (14.0-18.0); Mean Corpuscular HGB CONC 32.9 g/dL (32.0-36.0); Mean Corpuscular Hemoglobin 29.9 pg (27.0-31.0); Mean Corpuscular Volume 90.6 fL (78.0-98.0); Mean Platelet Volume 9.5 fL (7.4-10.4); Platelet Count 126 thou/uL (130-400); RBC Distribution Width 12.4 % (11.5-14.5); Red Blood Cell (RBC) Count 3.78 mill/uL (4.70-6.10); White Blood Cell (WBC) Count 7.8 thou/uL (4.8-10.8)
[2019-05-21 04:51] LABS: Anion Gap 9 mmol/L (10-20); BUN (Urea Nitrogen) 13 mg/dL (8.4-25.7); Calc. Creatinine Clearance 112 mL/min (70-130); Calcium 7.9 mg/dL (7.8-10.44); Carbon Dioxide 23 mmol/L (23-31); Chloride 111 mmol/L (98-107); Estimated GFR-MDRD 85; Glucose 121 mg/dL (80-115); Potassium 4.1 mmol/L (3.5-5.1); Sodium 139 mmol/L (136-145)
[2019-05-21] MEDS: CEFAZOLIN 2 GM in Premix Bag 1 BAG IVPB SCH (05:35)
[2019-05-21] MEDS: Ketorolac Tromethamine 30 MG/ML VIAL IVP SCH ×3 (05:36→17:30)
--- NOTE | 2019-05-21 06:19 | PDOC.FM ---
- Subjective Subjective: Mr. Palmer is having a R sided spasm and is in a lot of discomfort from it. He notes this is a normal occurence for him due to prior CVA. He says that nothing helps it and he just usually has to bear it and it will resolve in about an hour. R hand is contractured. - Objective Vital Signs & Weight: Vital Signs (12 hours) Temp Pulse Resp Pulse Ox 05/21/19 04:00 99.5 F 05/21/19 01:03 75 16 97 05/21/19 00:00 99.1 F 05/20/19 20:00 99.7 F H 99 05/20/19 18:48 73 16 97 Weight Admit Weight 91.6 kg Weight 94 kg Most Recent Monitor Data Heart Rate from ECG 80 NIBP 100/63 NIBP BP-Mean 75 Respiration from ECG 13 SpO2 94 I&O: 05/19/19 05/20/19 05/21/19 06:59 06:59 06:59 Intake Total 1901 2796.3 Output Total 600 1200 Balance 1301 1596.3 Result Diagrams: 05/21/19 04:19 05/21/19 04:19 Phys Exam - Physical Examination in pain due to spasm Respiratory: clear to auscultation bilateral (anteriorly) Cardiovascular: RRR, no significant murmur Gastrointestinal: soft, non-tender, positive bowel sounds Musculoskeletal: no edema Neurological: non-focal Psychiatric: normal affect Dx/Plan (1) NSTEMI (non-ST elevated myocardial infarction) Code(s): I21.4 - NON-ST ELEVATION (NSTEMI) MYOCARDIAL INFARCTION Status: Acute (2) HLD (hyperlipidemia) Code(s): E78.5 - HYPERLIPIDEMIA, UNSPECIFIED Status: Acute Qualifiers: Hyperlipidemia type: mixed hyperlipidemia Qualified Code(s): E78.2 - Mixed hyperlipidemia (3) Pulmonary emboli Code(s): I26.99 - OTHER PULMONARY EMBOLISM WITHOUT ACUTE COR PULMONALE Status : Acute (4) H/O: CVA (cerebrovascular accident) Code(s): Z86.73 - PRSNL HX OF TIA (TIA), AND CEREB INFRC W/O RESID DEFICITS Status: Chronic (5) HTN (hypertension) Code(s): I10 - ESSENTIAL (PRIMARY) HYPERTENSION Status: Chronic Qualifiers: Hypertension type: unspecified Qualified Code(s): I10 - Essential (primary ) hypertension (6) Right spastic hemiparesis Code(s): G81.11 - SPASTIC HEMIPLEGIA AFFECTING RIGHT DOMINANT SIDE Status: Chronic - Plan Plan: Patient is a 64 yo male with PMHx of CVA, HTN, HLD who presents with chest pain: #NSTEMI with multivessel CAD now s/p CABG POD #1 -trop 0.05->.3->.4-> .3 -Cardiology consulted - Dr. Mina. Cath 05/18 with significant occlusions -Dr. Mojica consulted - CABG 05/19. #Right-sided Hemiparesis -s/p CVA x 2 in 1988 with persistent right UE contracture and right sided weakness in UE, LE at baseline -continue to monitor for any new deficits #HTN - home losartan held #HLD -continue home Atorvastatin Code status: DNR-DNI PCP-CC: Dr. Stefano Casas Dispo:Postop management recommendations per Dr. Mojica. Addendum - Attending - Attending Attestation Date/Time: 05/21/19 6993 I personally evaluated the patient and discussed the management with Dr. Morales I agree with the History, Examination, Assessment and Plan documented above with any addition or exceptions noted below - Patient sitting at side of bed. Pain well controlled. Afebrile VSS A/P: 1) POD#1 s/p CABG - continue current care. 2) NSTEMI- continue current meds.
[2019-05-21] MEDS ORDERED: traZODone HCl 50 MG TAB PO PRN (06:48)
[2019-05-21] MEDS ORDERED: Promethazine HCl 25 MG/ML VIAL SLOW IVP PRN (06:49)
--- NOTE | 2019-05-21 07:02 | PRG ---
DATE OF SERVICE: 05/21/2019 SUBJECTIVE: The patient is now postop day #1 from coronary artery bypass graft x3. He has had some pain and nausea through the night that has been fairly controlled. The patient was taking norco 10 at home as well as several other medications to help with his chronic pain syndrome. His chest tube put out 340 mL overnight. His hemoglobin is stable. His creatinine is less than 1. His chest x-ray is clear. OBJECTIVE: GENERAL: He is resting comfortably in bed. VITAL SIGNS: Heart rate 80, blood pressure 105. LUNGS: Clear to auscultation. ABDOMEN: Firm, nontender, and quiet. EXTREMITIES: Warm. ASSESSMENT AND PLAN: At this time is to continue IV fluids and adjust his medications to see if we can make him somewhat more comfortable. Job ID: [id number] [facility]
[2019-05-21] MEDS: Citalopram 20 MG TAB PO SCH (08:49)
[2019-05-21] MEDS: HYDROcodone/Acetaminophen 5/325 mg Tablet PO PRN ×2 (08:49→15:16)
[2019-05-21] MEDS: Famotidine/PF 20 mg/2ml Vial SLOW IVP SCH (08:50)
[2019-05-21] MEDS: Aspirin 325 MG TAB PO SCH (08:50)
--- NOTE | 2019-05-21 09:37 | RAD ---
1 VIEW CHEST: Date: 05/21/2019 HISTORY: Post open heart surgery. COMPARISON: 05/20/2019. FINDINGS: Postsurgical changes related to CABG are again noted. Lines and tubes remain stable in position inclu ding right subclavian central venous catheter, mediastinal drain, and left-sided thoracostomy tube. N o pneumothorax or pleural effusion is appreciated. There is volume loss seen at the medial left lung base. Cardiac silhouette is magnified by projection, but does appear enlarged. Pulmonary vasculature is within normal limits. No pneumothorax is seen. The chest is stable compared to prior study. IMPRESSION: Stable chest. POS: [facility]
[2019-05-21] MEDS: Lactated Ringer's 1,000 ML IV SCH (13:49)
[2019-05-21] MEDS: Zolpidem Tartrate 5 MG TAB PO PRN (20:11)
[2019-05-21] MEDS: Famotidine 20 MG TAB PO SCH (20:11)
[2019-05-21] MEDS: Atorvastatin Calcium 40 MG TAB PO SCH (20:11)
[2019-05-21] MEDS: Insulin Regular 300 UNITS/3 ML VIAL SC PRN (20:14)
--- NOTE | 2019-05-21 22:44 | EKG ---
Test Reason : POST CABG Blood Pressure : / mmHG Vent. Rate : 070 BPM Atrial Rate : 070 BPM P-R Int : 264 ms QRS Dur : 112 ms QT Int : 446 ms P-R-T Axes : 044 039 -28 degrees QTc Int : 481 ms Sinus rhythm with 1st degree A-V block T wave abnormality, consider inferior ischemia Prolonged QT Abnormal ECG When compared with ECG of 18-MAY-2019 08:59, (Unconfirmed) QRS duration has increased Confirmed by Brian MURPHY ([id number]) on 05/21/2019 10:44:09 PM Referred By: TYRESE Confirmed By:Brian MURPHY
[2019-05-22] MEDS: Ketorolac Tromethamine 30 MG/ML VIAL IVP SCH ×4 (00:07→17:20)
[2019-05-22] MEDS: HYDROcodone/Acetaminophen 5/325 mg Tablet PO PRN ×2 (00:11→15:30)
[2019-05-22] MEDS: Guaifenesin DM 100-10/5 ML UDCUP PO PRN (03:47)
[2019-05-22 04:40] LABS: #Eosinphils 0.1 thou/uL (0.0-0.7); #Lymphocytes 0.9 thou/uL (1.20-3.40); #Monocytes 0.8 thou/uL (0.11-0.59); #Neutrophils 4.9 thou/uL (1.40-6.50); %Basophils 0.6 % (0.0-1.0); %Eosinophils 1.5 % (0.0-10.0); %Lymphocytes 13.8 % (21.0-51.0); %Monocytes 11.4 % (0.0-10.0); %Neutrophils 72.8 % (42.0-75.0); Hemoglobin 10.6 g/dL (14.0-18.0); Mean Corpuscular HGB CONC 32.8 g/dL (32.0-36.0); Mean Corpuscular Hemoglobin 29.9 pg (27.0-31.0); Mean Corpuscular Volume 91.1 fL (78.0-98.0); Mean Platelet Volume 9.4 fL (7.4-10.4); Platelet Count 105 thou/uL (130-400); RBC Distribution Width 12.5 % (11.5-14.5); Red Blood Cell (RBC) Count 3.55 mill/uL (4.70-6.10); White Blood Cell (WBC) Count 6.7 thou/uL (4.8-10.8)
[2019-05-22 05:00] LABS: Anion Gap 13 mmol/L (10-20); BUN (Urea Nitrogen) 15 mg/dL (8.4-25.7); Calc. Creatinine Clearance 107 mL/min (70-130); Calcium 8.2 mg/dL (7.8-10.44); Carbon Dioxide 22 mmol/L (23-31); Chloride 109 mmol/L (98-107); Estimated GFR-MDRD 82; Glucose 123 mg/dL (80-115); Sodium 140 mmol/L (136-145)
[2019-05-22] MEDS: Insulin Regular 300 UNITS/3 ML VIAL SC PRN (05:13)
[2019-05-22] MEDS: Lactated Ringer's 1,000 ML IV SCH (06:08)
--- NOTE | 2019-05-22 06:42 | PDOC.FM ---
- Subjective Subjective: Mr. Palmer is feeling better this morning. Reports pain has improved. Getting ready to move to tele floor. Has not had any more muscle spasms. Denies difficulty breathing. - Objective Vital Signs & Weight: Vital Signs (12 hours) Temp Pulse Resp Pulse Ox 05/22/19 04:00 98.7 F 05/22/19 00:00 98.6 F 05/21/19 23:57 94 16 96 05/21/19 19:25 93 L 05/21/19 19:00 99.0 F Weight Admit Weight 91.6 kg Weight 93.2 kg Most Recent Monitor Data Heart Rate from ECG 104 NIBP 95/79 NIBP BP-Mean 84 Respiration from ECG 28 SpO2 94 I&O: 05/20/19 05/21/19 05/22/19 06:59 06:59 06:59 Intake Total 1901 2796.3 3857 Output Total 600 1200 1200 Balance 1301 1596.3 2657 Result Diagrams: 05/22/19 04:20 05/22/19 04:20 Phys Exam - Physical Examination Constitutional: NAD Respiratory: clear to auscultation bilateral Cardiovascular: RRR, no significant murmur Gastrointestinal: soft Musculoskeletal: no edema Neurological: moves all 4 limbs Psychiatric: normal affect Dx/Plan (1) NSTEMI (non-ST elevated myocardial infarction) Code(s): I21.4 - NON-ST ELEVATION (NSTEMI) MYOCARDIAL INFARCTION Status: Acute (2) HLD (hyperlipidemia) Code(s): E78.5 - HYPERLIPIDEMIA, UNSPECIFIED Status: Acute Qualifiers: Hyperlipidemia type: mixed hyperlipidemia Qualified Code(s): E78.2 - Mixed hyperlipidemia (3) Pulmonary emboli Code(s): I26.99 - OTHER PULMONARY EMBOLISM WITHOUT ACUTE COR PULMONALE Status : Acute (4) H/O: CVA (cerebrovascular accident) Code(s): Z86.73 - PRSNL HX OF TIA (TIA), AND CEREB INFRC W/O RESID DEFICITS Status: Chronic (5) HTN (hypertension) Code(s): I10 - ESSENTIAL (PRIMARY) HYPERTENSION Status: Chronic Qualifiers: Hypertension type: unspecified Qualified Code(s): I10 - Essential (primary ) hypertension (6) Right spastic hemiparesis Code(s): G81.11 - SPASTIC HEMIPLEGIA AFFECTING RIGHT DOMINANT SIDE Status: Chronic - Plan Plan: Patient is a 64 yo male with PMHx of CVA, HTN, HLD who presents with chest pain: #NSTEMI with multivessel CAD now s/p CABG POD #2 -trop 0.05->.3->.4-> .3 -Cardiology consulted - Dr. Mina. Cath 05/18 with significant occlusions -Dr. Mojica consulted - CABG 05/19. - PT/OT #Right-sided Hemiparesis -s/p CVA x 2 in 1988 with persistent right UE contracture and right sided weakness in UE, LE at baseline -continue to monitor for any new deficits #HTN - home losartan held #HLD -continue home Atorvastatin Code status: DNR-DNI PCP-CC: Dr. Stefano Casas Dispo: Patient recovering well, postop management recommendations per Dr. Mojica. Addendum - Attending - Attending Attestation Date/Time: 05/22/19 8196 I personally evaluated the patient and discussed the management with Dr. Morales I agree with the History, Examination, Assessment and Plan documented above with any addition or exceptions noted below - Patient without complaints. Sitting on side of bed. Afebrile VSS. A/P: 1) CAD s/p CABG POD#2- continue plans as per CV surgery. 2) HTN- well controlled.
[2019-05-22] MEDS: Aspirin 325 MG TAB PO SCH (08:03)
[2019-05-22] MEDS: Famotidine 20 MG TAB PO SCH ×2 (08:03→21:15)
[2019-05-22] MEDS: Citalopram 20 MG TAB PO SCH (08:03)
[2019-05-22] MEDS: Enoxaparin Sodium 40 MG/0.4 ML SYRINGE SC SCH (08:03)
[2019-05-22] MEDS ORDERED: Bisacodyl 10 MG SUPP PR PRN (09:00)
[2019-05-22] MEDS ORDERED: Mineral Oil ENEMA PR PRN (09:00)
[2019-05-22] MEDS ORDERED: Milk Of Magnesia 30 ML UDCUP PO PRN (09:00)
[2019-05-22] MEDS ORDERED: Mag-Al 1200 mg/1200 mg/30 ML UDCUP PO PRN (09:00)
[2019-05-22] MEDS ORDERED: Bisacodyl 5 MG TAB PO PRN (09:00)
[2019-05-22] MEDS ORDERED: Nitroglycerin 0.4 MG TAB (25 Tab Bottle) SL PRN (09:00)
--- NOTE | 2019-05-22 09:05 | RAD ---
PORTABLE CHEST 1 VIEW: DATE: 05/22/2019 at 5:02 a.m. HISTORY: Post open heart surgery. COMPARISON: Previous day. FINDINGS/IMPRESSION: There are mild atelectatic changes at the lung bases with probable small effusions. No pneumothorace s are seen. Line and tube placements are unchanged in position. The heart size is stable. POS: [facility]
[2019-05-22] MEDS: Furosemide 40 MG TAB PO SCH (09:44)
[2019-05-22] MEDS: Polyethylene Glycol 3350 17 GM Packet PO SCH (09:44)
[2019-05-22 11:17] VITALS: BMI 28.6
--- NOTE | 2019-05-22 14:52 | EKG ---
Test Reason : Blood Pressure : / mmHG Vent. Rate : 069 BPM Atrial Rate : 069 BPM P-R Int : 210 ms QRS Dur : 094 ms QT Int : 408 ms P-R-T Axes : 024 012 -25 degrees QTc Int : 437 ms Sinus rhythm with 1st degree A-V block Low voltage QRS Abnormal ECG Confirmed by NISA ANDRADE, MEME ([id number]), associate editor BRIAN ROSALES ([id number]) on 05/22/2019 2:51:52 PM Referred By: Confirmed By:MEME PAULA MD
[2019-05-22] MEDS: Atorvastatin Calcium 40 MG TAB PO SCH (21:15)
[2019-05-23] MEDS: Ketorolac Tromethamine 30 MG/ML VIAL IVP SCH ×3 (00:44→11:47)
[2019-05-23] MEDS: HYDROcodone/Acetaminophen 5/325 mg Tablet PO PRN ×3 (03:55→22:08)
--- NOTE | 2019-05-23 06:45 | PDOC.FM ---
- Subjective Subjective: Mr. Palmer continues to feel better each day. Pain decreased, good PO intake. Notes cath was removed last night and has not urinated yet. - Objective Vital Signs & Weight: Vital Signs (12 hours) Temp Pulse Resp BP Pulse Ox 05/23/19 03:49 99.3 F 90 23 H 127/68 94 L 05/23/19 00:58 88 18 94 L 05/22/19 20:00 99.6 F 90 18 127/64 93 L Weight Admit Weight 91.6 kg Weight 92.533 kg Most Recent Monitor Data Heart Rate from ECG 94 NIBP 119/68 NIBP BP-Mean 85 Respiration from ECG 18 SpO2 90 I&O: 05/21/19 05/22/19 05/23/19 06:59 06:59 06:59 Intake Total 2796.3 3857 750 Output Total 1200 1200 660 Balance 1596.3 2657 90 Result Diagrams: 05/22/19 04:20 05/22/19 04:20 Phys Exam - Physical Examination Constitutional: NAD Respiratory: no wheezing, clear to auscultation bilateral Cardiovascular: RRR Gastrointestinal: soft Musculoskeletal: no edema Neurological: non-focal Skin: normal turgor Dx/Plan (1) NSTEMI (non-ST elevated myocardial infarction) Code(s): I21.4 - NON-ST ELEVATION (NSTEMI) MYOCARDIAL INFARCTION Status: Acute (2) HLD (hyperlipidemia) Code(s): E78.5 - HYPERLIPIDEMIA, UNSPECIFIED Status: Acute Qualifiers: Hyperlipidemia type: mixed hyperlipidemia Qualified Code(s): E78.2 - Mixed hyperlipidemia (3) Pulmonary emboli Code(s): I26.99 - OTHER PULMONARY EMBOLISM WITHOUT ACUTE COR PULMONALE Status : Acute (4) H/O: CVA (cerebrovascular accident) Code(s): Z86.73 - PRSNL HX OF TIA (TIA), AND CEREB INFRC W/O RESID DEFICITS Status: Chronic (5) HTN (hypertension) Code(s): I10 - ESSENTIAL (PRIMARY) HYPERTENSION Status: Chronic Qualifiers: Hypertension type: unspecified Qualified Code(s): I10 - Essential (primary ) hypertension (6) Right spastic hemiparesis Code(s): G81.11 - SPASTIC HEMIPLEGIA AFFECTING RIGHT DOMINANT SIDE Status: Chronic - Plan Plan: Patient is a 64 yo male with PMHx of CVA, HTN, HLD who presents with chest pain: #NSTEMI with multivessel CAD now s/p CABG POD #3 -Cardiology consulted - Dr. Mina. Cath 05/18 with significant occlusions -Dr. Mojica consulted - CABG 05/19. - PT/OT #Possible urinary retention - cath removed 05/21 - flomax already added #Right-sided Hemiparesis -s/p CVA x 2 in 1988 with persistent right UE contracture and right sided weakness in UE, LE at baseline -continue to monitor for any new deficits #HTN - home losartan held #HLD -continue home Atorvastatin Code status: DNR-DNI PCP-CC: Dr. Stefano Casas Dispo: Patient recovering well, postop management recommendations per Dr. Mojica. Patient interested in swing bed in [place]. Addendum - Attending - Attending Attestation Date/Time: 05/23/19 9931 I personally evaluated the patient and discussed the management with Dr. Morales I agree with the History, Examination, Assessment and Plan documented above with any addition or exceptions noted below - Patient without complaints. Working with PT. Afebrile VSS. A/P: 1) CAD s/p CABG- recovering well; continue current care. 2) HTN- well controlled.
[2019-05-23] MEDS: Famotidine 20 MG TAB PO SCH ×2 (08:28→22:07)
[2019-05-23] MEDS: Enoxaparin Sodium 40 MG/0.4 ML SYRINGE SC SCH (08:28)
[2019-05-23] MEDS: Aspirin 325 MG TAB PO SCH (08:28)
[2019-05-23] MEDS: Potassium Chloride 10 MEQ TAB PO SCH (08:28)
[2019-05-23] MEDS: Citalopram 20 MG TAB PO SCH (08:28)
[2019-05-23] MEDS: Polyethylene Glycol 3350 17 GM Packet PO SCH (08:29)
[2019-05-23] MEDS: Furosemide 40 MG TAB PO SCH (08:29)
[2019-05-23] MEDS: Tamsulosin HCl 0.4 MG CAP PO SCH ×2 (08:30→22:07)
--- NOTE | 2019-05-23 15:56 | PQF ---
DATE: 05-23-19 ATTN: DR. PHOEBE HOWARD Please exercise your independent, professional judgment in responding to the clarification form. Clinical indicators are provided on the bottom of this form for your review Please check appropriate box(s): Conflicting documentation was noted in the Medical Record, please clarify if patient is being treated/monitored for: [ x ] HX OF BILATERAL PE'S [ ] ACUTE PULMONARY EMBOLI [ ] Other diagnosis [ ] Unable to determine In addition, please specify: Present on Admission (POA): [ ] Yes [ x ] No [ ] Unable to determine For continuity of documentation, please document condition throughout progress notes and discharge summary. Thank You. CLINICAL INDICATORS - SIGNS / SYMPTOMS/ LABS / RESULTS AND LOCATION IN EMR: H&P: 05-18-19: HX OF BILAT. PE'S PN DR. HWOARD 05-19-19: ACUTE PULMONARY EMBOLISM RISK FACTORS / RESULTS AND LOCATION IN EMR: H&P: 05-18-19: CP, HX OF BILAT. PE'S TREATMENT / RESULTS AND LOCATION IN EMR: MAR: CARLOS SC 05-22-19 (This form is maintained as a part of the permanent medical record) 2014 [employer] All Rights Reserved [email or web address] [facility]
[2019-05-23] MEDS: Guaifenesin DM 100-10/5 ML UDCUP PO PRN (18:30)
[2019-05-23] MEDS: Atorvastatin Calcium 40 MG TAB PO SCH (22:07)
[2019-05-23] MEDS: Zolpidem Tartrate 5 MG TAB PO PRN (22:10)
--- NOTE | 2019-05-24 06:28 | PDOC.FM ---
- Subjective Subjective: Mr. Palmer reports doing well overall. Still has fonseca in place. Reports some coughing causing chest pain overnight. Tolerating PO. - Objective Vital Signs & Weight: Vital Signs (12 hours) Temp Pulse Resp BP Pulse Ox 05/24/19 04:00 98.7 F 89 20 111/60 95 05/24/19 02:47 86 16 95 05/23/19 20:00 99.3 F 95 18 128/70 94 L 05/23/19 18:48 94 18 96 Weight Admit Weight 91.6 kg Weight 92.533 kg Most Recent Monitor Data Heart Rate from ECG 94 NIBP 119/68 NIBP BP-Mean 85 Respiration from ECG 18 SpO2 90 I&O: 05/22/19 05/23/19 05/24/19 06:59 06:59 06:59 Intake Total 3857 750 600 Output Total 1200 660 450 Balance 2657 90 150 Result Diagrams: 05/22/19 04:20 05/22/19 04:20 Phys Exam - Physical Examination Constitutional: NAD Respiratory: wheezing present (expiratory) Cardiovascular: RRR, no significant murmur Gastrointestinal: soft Musculoskeletal: no edema Neurological: non-focal Psychiatric: normal affect Skin: normal turgor Dx/Plan (1) NSTEMI (non-ST elevated myocardial infarction) Code(s): I21.4 - NON-ST ELEVATION (NSTEMI) MYOCARDIAL INFARCTION Status: Acute (2) HLD (hyperlipidemia) Code(s): E78.5 - HYPERLIPIDEMIA, UNSPECIFIED Status: Acute Qualifiers: Hyperlipidemia type: mixed hyperlipidemia Qualified Code(s): E78.2 - Mixed hyperlipidemia (3) Pulmonary emboli Code(s): I26.99 - OTHER PULMONARY EMBOLISM WITHOUT ACUTE COR PULMONALE Status : Acute (4) H/O: CVA (cerebrovascular accident) Code(s): Z86.73 - PRSNL HX OF TIA (TIA), AND CEREB INFRC W/O RESID DEFICITS Status: Chronic (5) HTN (hypertension) Code(s): I10 - ESSENTIAL (PRIMARY) HYPERTENSION Status: Chronic Qualifiers: Hypertension type: unspecified Qualified Code(s): I10 - Essential (primary ) hypertension (6) Right spastic hemiparesis Code(s): G81.11 - SPASTIC HEMIPLEGIA AFFECTING RIGHT DOMINANT SIDE Status: Chronic - Plan Plan: Patient is a 64 yo male with PMHx of CVA, HTN, HLD who presents with chest pain: #NSTEMI with multivessel CAD now s/p CABG POD #4 -Cardiology consulted - Dr. Mina. Cath 05/18 with significant occlusions -Dr. Mojica consulted - CABG 05/19. -PT/OT #Urinary retention - cath removed and replaced - continue flomax #Right-sided Hemiparesis -s/p CVA x 2 in 1988 with persistent right UE contracture and right sided weakness in UE, LE at baseline -continue to monitor for any new deficits #HTN - home losartan held #HLD -continue home Atorvastatin Code status: DNR-DNI PCP-CC: Dr. Stefano Casas Dispo: Patient recovering well, postop management recommendations per Dr. Mojica. Plan for transfer to swing bed in [place] for continued therapy when CV surg believes he is ready. Addendum - Attending - Attending Attestation Date/Time: 05/24/19 1223 I personally evaluated the patient and discussed the management with Dr. Morales I agree with the History, Examination, Assessment and Plan documented above with any addition or exceptions noted below- Patient without complaints. Walking with PT. Afebrile VSS. A/P: 1) CAD s/p CABG - continue current care. PLans as per CV surgery. Plan for swing bed/rehab upon discharge. 2) DM2 stable
[2019-05-24] MEDS: Potassium Chloride 10 MEQ TAB PO SCH (08:17)
[2019-05-24] MEDS: Tamsulosin HCl 0.4 MG CAP PO SCH ×2 (08:18→20:46)
[2019-05-24] MEDS: Famotidine 20 MG TAB PO SCH ×2 (08:18→20:46)
[2019-05-24] MEDS: Aspirin 325 MG TAB PO SCH (08:18)
[2019-05-24] MEDS: Furosemide 40 MG TAB PO SCH (08:18)
[2019-05-24] MEDS: Citalopram 20 MG TAB PO SCH (08:18)
[2019-05-24] MEDS: Enoxaparin Sodium 40 MG/0.4 ML SYRINGE SC SCH (08:18)
[2019-05-24] MEDS: Polyethylene Glycol 3350 17 GM Packet PO SCH (08:19)
[2019-05-24] MEDS: HYDROcodone/Acetaminophen 5/325 mg Tablet PO PRN ×4 (08:20→23:53)
[2019-05-24] MEDS: Guaifenesin DM 100-10/5 ML UDCUP PO PRN ×4 (08:24→20:45)
[2019-05-24 11:06] LABS: Bilirubin Negative (Negative); Blood, Urine 2+ (Negative); Clarity Turbid (Clear); Glucose, Urine (Dipstick) Normal (Negative); Leukocyte 500 Leu/uL (Negative); Nitrite Negative (Negative); Protein, Urine (Dipstick) 50 mg/dL (Neg-Trace); RBC/HPF Greater than 50 HPF (0-3); Squamous Epithelial None Seen HPF (0-3); Urobilinogen Normal mg/dL (Less than 2); WBC/HPF Greater than 50 HPF (0-3)
[2019-05-24 11:08] LABS: Bacteria/HPF 1+ HPF (None Seen)
[2019-05-24 11:09] LABS: Urine Culture Reflex Yes Yes
--- NOTE | 2019-05-24 13:04 | RAD ---
PORTABLE CHEST: HISTORY: Fever. Post CABG procedure. COMPARISON: 05/22/19 FINDINGS: Cardiomegaly with postop sternotomy change. Evidence of small bilateral effusions and left basilar at electasis or infiltrate. The upper lung zones are clear. No evidence of vascular congestion. The cent ral line is adequately positioned. The drainage catheters have been removed. The left basilar opaciti es have improved when compared to 05/22/19. IMPRESSION: Evidence of small effusions and left basilar atelectasis or infiltrate. The left basilar opacities ramesh ve improved when compared to the prior study. POS: [facility]
[2019-05-24] MEDS: Zolpidem Tartrate 5 MG TAB PO PRN (20:45)
[2019-05-24] MEDS: Atorvastatin Calcium 40 MG TAB PO SCH (20:46)
[2019-05-25] MEDS: Guaifenesin DM 100-10/5 ML UDCUP PO PRN ×3 (03:50→21:01)
[2019-05-25] MEDS: Polyethylene Glycol 3350 17 GM Packet PO SCH (08:34)
[2019-05-25] MEDS: Enoxaparin Sodium 40 MG/0.4 ML SYRINGE SC SCH (08:35)
[2019-05-25] MEDS: Aspirin 325 MG TAB PO SCH (08:35)
[2019-05-25] MEDS: Tamsulosin HCl 0.4 MG CAP PO SCH ×2 (08:35→21:00)
[2019-05-25] MEDS: Potassium Chloride 10 MEQ TAB PO SCH (08:35)
[2019-05-25] MEDS: Citalopram 20 MG TAB PO SCH (08:36)
[2019-05-25] MEDS: Famotidine 20 MG TAB PO SCH ×2 (08:36→21:01)
[2019-05-25] MEDS: Furosemide 40 MG TAB PO SCH (08:36)
--- NOTE | 2019-05-25 08:45 | PDOC.FM ---
- Subjective Subjective: Mr. Palmer has had continued cough resulting in chest pain. Says he has some phlegm. Repeat CXR yesterday not suspicious for infection. Patient reports his wheezing is baseline for him. Denies hx COPD or smoking. Jauregui out and urinating well per patient. No dysuria. Had 2 temps of 100.0 yesterday. - Objective Vital Signs & Weight: Vital Signs (12 hours) Temp Pulse Resp BP Pulse Ox 05/25/19 07:50 99.3 F 80 18 133/73 93 L 05/25/19 07:33 77 20 05/25/19 03:47 98.9 F 92 16 109/55 L 98 05/25/19 01:11 84 16 92 L Weight Admit Weight 91.6 kg Weight 94.064 kg Most Recent Monitor Data Heart Rate from ECG 94 NIBP 119/68 NIBP BP-Mean 85 Respiration from ECG 18 SpO2 90 I&O: 05/24/19 05/25/19 05/26/19 06:59 06:59 06:59 Intake Total 600 2400 Output Total 450 1735 Balance 150 665 Result Diagrams: 05/22/19 04:20 05/22/19 04:20 Phys Exam - Physical Examination Constitutional: NAD Respiratory: no wheezing, clear to auscultation bilateral Cardiovascular: RRR, no significant murmur Gastrointestinal: soft Musculoskeletal: no edema Dx/Plan (1) NSTEMI (non-ST elevated myocardial infarction) Code(s): I21.4 - NON-ST ELEVATION (NSTEMI) MYOCARDIAL INFARCTION Status: Acute (2) HLD (hyperlipidemia) Code(s): E78.5 - HYPERLIPIDEMIA, UNSPECIFIED Status: Acute Qualifiers: Hyperlipidemia type: mixed hyperlipidemia Qualified Code(s): E78.2 - Mixed hyperlipidemia (3) Pulmonary emboli Code(s): I26.99 - OTHER PULMONARY EMBOLISM WITHOUT ACUTE COR PULMONALE Status : Acute (4) H/O: CVA (cerebrovascular accident) Code(s): Z86.73 - PRSNL HX OF TIA (TIA), AND CEREB INFRC W/O RESID DEFICITS Status: Chronic (5) HTN (hypertension) Code(s): I10 - ESSENTIAL (PRIMARY) HYPERTENSION Status: Chronic Qualifiers: Hypertension type: unspecified Qualified Code(s): I10 - Essential (primary ) hypertension (6) Right spastic hemiparesis Code(s): G81.11 - SPASTIC HEMIPLEGIA AFFECTING RIGHT DOMINANT SIDE Status: Chronic - Plan Plan: Patient is a 64 yo male with PMHx of CVA, HTN, HLD who presents with chest pain: #NSTEMI with multivessel CAD now s/p CABG POD #5 -Cardiology consulted - Dr. Mina. Cath 05/18 with significant occlusions -Dr. Mojica consulted - CABG 05/19. -PT/OT Catheter associated UTI - temp of 100.0, UA with leuk esterase, bacteria. Ucx pending. - start rocephin #Urinary retention, resolved - cath removed - continue flomax #Right-sided Hemiparesis -s/p CVA x 2 in 1988 with persistent right UE contracture and right sided weakness in UE, LE at baseline -continue to monitor for any new deficits #HTN - home losartan held #HLD -continue home Atorvastatin Code status: DNR-DNI PCP-CC: Dr. Stefano Casas Dispo: Patient recovering well, postop management recommendations per Dr. Mojica. Plan for transfer to swing bed in [place] for continued therapy when CV surg believes he is ready. Addendum - Attending - Attending Attestation Date/Time: 05/25/19 0608 I personally evaluated the patient and discussed the management with Dr. Morales. I agree with the History, Examination, Assessment and Plan documented above with any addition or exceptions noted below - Patient without complaints. Tm 100.0 VSS. A/P: 1) CAD s/p CABG - stable; continue current care. 2) Low grade temp- urine with bacteria and leukocytes; started on rocephin; await culture. 3 ) Deconditioning- plan to transfer to swing bed in [place].
[2019-05-25] MEDS ORDERED: cefTRIAXone\\ROCEPHIN 1 GM in Sodium Chloride 0.9% 100 ML IVPB SCH (09:00)
[2019-05-25] MEDS: Losartan 25 MG TAB PO SCH (09:48)
[2019-05-25] MEDS ORDERED: Furosemide 20 MG/2 ML VIAL SLOW IVP SCH (16:45)
[2019-05-25] MEDS: HYDROcodone/Acetaminophen 5/325 mg Tablet PO PRN (17:33)
[2019-05-25] MEDS: Atorvastatin Calcium 40 MG TAB PO SCH (21:00)
[2019-05-25] MEDS: Zolpidem Tartrate 5 MG TAB PO PRN (21:02)
[2019-05-26] MEDS ORDERED: Benzonatate 100 MG CAP PO PRN (05:53)
--- NOTE | 2019-05-26 06:09 | PDOC.FM ---
- Subjective Subjective: Pt doing well this morning. Denies any complaints or events overnight. States he has chronic wheezing and cough at baseline. Does not use any breathing treatments or pulm rx at home. 35yr smoking hx w/o prev dx of COPD. - Objective Vital Signs & Weight: Vital Signs (12 hours) Temp Pulse Resp BP Pulse Ox 05/26/19 03:39 99 F 89 22 H 136/70 93 L 05/26/19 00:48 89 16 92 L 05/25/19 20:00 98.9 F 91 20 133/68 94 L 05/25/19 19:03 88 18 91 L Weight Admit Weight 91.6 kg Weight 92.215 kg Most Recent Monitor Data Heart Rate from ECG 94 NIBP 119/68 NIBP BP-Mean 85 Respiration from ECG 18 SpO2 90 I&O: 05/24/19 05/25/19 05/26/19 06:59 06:59 06:59 Intake Total 600 2400 1200 Output Total 450 1735 1680 Balance 150 665 -480 Result Diagrams: 05/22/19 04:20 05/22/19 04:20 Phys Exam - Physical Examination Constitutional: NAD HEENT: moist MMs Neck: supple Respiratory: wheezing present Diffuse wheezing, good air movement Cardiovascular: RRR Gastrointestinal: soft, non-tender Musculoskeletal: no edema Neurological: non-focal, moves all 4 limbs Psychiatric: normal affect, A&O x 3 Deviation from normal: sternotomy CDI Dx/Plan (1) HLD (hyperlipidemia) Code(s): E78.5 - HYPERLIPIDEMIA, UNSPECIFIED Status: Acute Qualifiers: Hyperlipidemia type: mixed hyperlipidemia Qualified Code(s): E78.2 - Mixed hyperlipidemia (2) H/O: CVA (cerebrovascular accident) Code(s): Z86.73 - PRSNL HX OF TIA (TIA), AND CEREB INFRC W/O RESID DEFICITS Status: Chronic (3) HTN (hypertension) Code(s): I10 - ESSENTIAL (PRIMARY) HYPERTENSION Status: Chronic Qualifiers: Hypertension type: unspecified Qualified Code(s): I10 - Essential (primary ) hypertension (4) Right spastic hemiparesis Code(s): G81.11 - SPASTIC HEMIPLEGIA AFFECTING RIGHT DOMINANT SIDE Status: Chronic (5) NSTEMI (non-ST elevated myocardial infarction) Code(s): I21.4 - NON-ST ELEVATION (NSTEMI) MYOCARDIAL INFARCTION Status: Acute - Plan Plan: Patient is a 64 yo male with PMHx of CVA, HTN, HLD who presents with chest pain: NSTEMI with multivessel CAD now s/p CABG POD #5 -Cardiology consulted - Dr. Mina. Cath 05/18 with significant occlusions -Dr. Mojica consulted - CABG 05/19. -PT/OT Borderline Hypoxia - satting in low 90's on room air - likely 2/2 to post operative atelectasis - will encourage pulm hygiene and incentive spirometry - DC with albuterol rescue inhaler Urinary retention, resolved - cath removed - continue flomax Right-sided Hemiparesis -s/p CVA x 2 in 1988 with persistent right UE contracture and right sided weakness in UE, LE at baseline -continue to monitor for any new deficits HTN - home losartan held HLD -continue home Atorvastatin Code status: DNR-DNI PCP-CC: Dr. Stefano Casas Dispo: Patient recovering well, postop management recommendations per Dr. Mojica. Having borderline O2 sats - likely 2/2 to post operative atelectasis and undiagnosed COPD. Plan for transfer to swing bed in [place] for continued therapy when CV surg believes he is ready. Addendum - Attending - Attending Attestation Date/Time: 05/26/19 1320 I personally evaluated the patient and discussed the management with Dr. Friedman. I agree with the History, Examination, Assessment and Plan documented above with any addition or exceptions noted below. Patient stable. Ready for discharge to swing bed for continued therapy s/p his CABG.
--- NOTE | 2019-05-26 06:47 | PRG ---
DATE OF SERVICE: 05/26/2019 Mr. Palmer remains afebrile with stable heart rate of about 100. His blood pressure is in the 120-130 range. He is still coughing some, but he thinks less. His chest incision is clean and dry. His lungs are clear this morning. He does occasionally wheeze and this seems to improve with the nebulizer treatments. He is probably approaching the point where he can be discharged to assisted unit and may benefit from inhalers post discharge. Plan is for discharge to the assisted unit for 1-2 weeks until he is more ambulatory and stable. Job ID: [id number]
[2019-05-26] MEDS: Aspirin 325 MG TAB PO SCH (09:34)
[2019-05-26] MEDS: Potassium Chloride 10 MEQ TAB PO SCH (09:34)
[2019-05-26] MEDS: Benzonatate 100 MG CAP PO SCH ×2 (09:35→14:20)
[2019-05-26] MEDS: Citalopram 20 MG TAB PO SCH (09:35)
[2019-05-26] MEDS: Enoxaparin Sodium 40 MG/0.4 ML SYRINGE SC SCH (09:36)
[2019-05-26] MEDS: Furosemide 40 MG TAB PO SCH (09:37)
[2019-05-26] MEDS: Famotidine 20 MG TAB PO SCH (09:37)
[2019-05-26] MEDS: Losartan 25 MG TAB PO SCH (09:37)
[2019-05-26] MEDS: Polyethylene Glycol 3350 17 GM Packet PO SCH (09:38)
[2019-05-26] MEDS: Tamsulosin HCl 0.4 MG CAP PO SCH (09:38)
[2019-05-26 11:38] VITALS: TEMP 98.8
[2019-05-26 12:45] VITALS: BP 132/67
--- NOTE | 2019-05-27 08:06 | DIS ---
DATE OF ADMISSION: 05/18/2019 DATE OF DISCHARGE: 05/26/2019 ADMITTING ATTENDING: Bebe Ayala MD. DISCHARGE ATTENDING: Von Velarde MD. RESIDENT: Luis Alberto Friedman DO. CONSULTS: 1. Cardiology, Austyn Mina MD. 2. Cardiovascular Surgery, Zi Mojica MD. PROCEDURES PERFORMED: Cardiac catheterization on 05/19/2019, showing proximal left anterior descending lesion with 20% stenosis, mid left anterior descending lesion with 90% stenosis, proximal circumflex lesion with 40% stenosis, proximal right coronary artery lesion with 99% stenosis, distal right coronary artery lesion with 70% stenosis, mid right coronary artery lesion with 40% stenosis, third RPL with 90% stenosis. Coronary artery bypass graft on 05/20/2019, 3-vessel coronary artery bypass grafting of left internal mammary artery to left anterior descending, saphenous vein to posterior descending and posterolateral artery. IMAGING STUDIES: Chest x-ray on 05/18/2019, showing no acute cardiopulmonary process with possible foreign body projecting over the right sternoclavicular region. Echocardiogram on 05/18, showing an EF of 55% to 60%, and otherwise, normal exam. PRIMARY DIAGNOSES: Coronary artery disease, Non ST-elevation myocardial infarction, status post coronary artery bypass grafting. SECONDARY DIAGNOSES: History of cerebrovascular accident, hypertension, right spastic hemiparesis, hyperlipidemia. DISCHARGE MEDICATIONS: 1. Celexa 20 mg daily. 2. Trazodone 50 mg at bedtime. 3. Zolpidem 5 mg at bedtime. 4. Bentyl 20 mg p.o. q.8 hours p.r.n. 5. Acetaminophen 650 mg q.6 hours p.r.n. 6. Maalox 30 mL p.o. q.4 hours p.r.n. 7. Aspirin 325 mg daily. 8. Atorvastatin 40 mg daily. 9. Tessalon Perles 200 mg p.o. q.4 hours p.r.n. 10. Dulcolax 10 mg p.o. q.12 hours p.r.n. 11. Lovenox 40 mg subcutaneously daily. 12. Pepcid 20 mg p.o. q.12 hours. 13. Lasix 40 mg daily. 14. Robitussin DM 15 mL p.o. q.4 hours p.r.n. 15. [place] 5/325 one to two tablets q.4 hours p.r.n. 16. DuoNeb 3 mL nebulizer q.6 hours p.r.n. 17. Cozaar 12.5 mg daily. 18. Toprol-XL 25 mg daily. 19. Nitrostat 0.4 mg sublingual q.5 minutes p.r.n. 20. MiraLAX 17 g pack daily. 21. Potassium chloride 10 mEq p.o. q.a.m. 22. Flomax 0.4 mg p.o. at bedtime. HISTORY OF PRESENT ILLNESS AND HOSPITAL COURSE: A 64-year-old male, presented to the emergency department with complaint of intermittent chest pain for the past month that worsened this morning. EKG in the field showed ST elevation in the inferior leads. Repeat EKG in the ED showed T-wave inversions in the inferior leads. The patient was evaluated by Dr. Messer in the emergency department, who determined no immediate catheterization procedure was needed; however, admission was warranted. The patient was subsequently admitted to the hospital. His troponins trended up from 0.05 to 0.401. Cardiology again saw the patient and determined that the patient was a candidate for catheterization procedure and subsequently took him in for the procedure the following day. The patient was found to have multiple coronary artery lesions as noted above. It was determined that the patient's best course of treatment would be a bypass graft procedure. The patient was seen by Dr. Mojica and had a 3-vessel CABG procedure performed the following day. In the postoperative period, the patient performed well and progressed well with therapies. He did note some intermittent coughing and continuous wheezing. He states that he was a long-term smoker for greater than 35 years and often wheezes at baseline. The patient was given p.r.n. DuoNeb, which improved his breathing and was instructed to follow up with his PCP as an outpatient regarding pulmonary function testing and treatment of his likely underlying COPD. The patient was subsequently transferred to [facility] for further cardiac rehab and therapy. DISCHARGE INSTRUCTIONS: LOCATION: [facility]. DIET: Heart-healthy. ACTIVITY: As tolerated by cardiopulmonary limits. FOLLOWUP: Follow up PCP within 7 days of discharge. Job ID: [id number] [facility] HOSPITALRigoberto
== END 2019-05-26 15:10 | disposition swing bed (61) | DRG 234 ==
LOC: ERS 08:55 → 2NO 09:04 → CCU 05-20 08:26 → 2NO 05-22 08:50
PROVIDERS: ADMIT Family Medicine; ATTEND Family Medicine
PROC: 4A023N7 Measurement of Cardiac Sampling and Pressure, Left Heart, Percutaneous Approach (ICD-10-PCS; principal; 2019-05-19)
PROC: B2151ZZ Fluoroscopy of Left Heart using Low Osmolar Contrast (ICD-10-PCS; 2019-05-19)
PROC: B2111ZZ Fluoroscopy of Multiple Coronary Arteries using Low Osmolar Contrast (ICD-10-PCS; 2019-05-19)
PROC: 02100Z9 Bypass Coronary Artery, One Artery from Left Internal Mammary, Open Approach (ICD-10-PCS; 2019-05-20)
PROC: 021109W Bypass Coronary Artery, Two Arteries from Aorta with Autologous Venous Tissue, Open Approach (ICD-10-PCS; 2019-05-20)
PROC: 06BQ3ZZ Excision of Left Saphenous Vein, Percutaneous Approach (ICD-10-PCS; 2019-05-20)
PROC: 5A1221Z Performance of Cardiac Output, Continuous (ICD-10-PCS; 2019-05-20)
DX: I21.4 Non-ST elevation (NSTEMI) myocardial infarction (principal); T83.518A Infection and inflammatory reaction due to other urinary catheter, initial encounter; N39.0 Urinary tract infection, site not specified; J98.11 Atelectasis; I69.351 Hemiplegia and hemiparesis following cerebral infarction affecting right dominant side; Z66 Do not resuscitate; I25.10 Atherosclerotic heart disease of native coronary artery without angina pectoris; I10 Essential (primary) hypertension; F32.9 Major depressive disorder, single episode, unspecified; E78.2 Mixed hyperlipidemia; G47.33 Obstructive sleep apnea (adult) (pediatric); E78.00 Pure hypercholesterolemia, unspecified; J44.9 Chronic obstructive pulmonary disease, unspecified; Z87.891 Personal history of nicotine dependence; Z79.899 Other long term (current) drug therapy; Z86.711 Personal history of pulmonary embolism; R33.9 Retention of urine, unspecified; Y84.6 Urinary catheterization as the cause of abnormal reaction of the patient, or of later complication, without mention of misadventure at the time of the procedure; N40.1 Benign prostatic hyperplasia with lower urinary tract symptoms; G89.4 Chronic pain syndrome; G47.00 Insomnia, unspecified
CPT/HCPCS: 36415; 36416; 36430; 71045; 80048; 80053; 80061; 81001; 82553; 83036; 83735; 83880; 84100; 84443; 84484; 85025; 85610; 85730; 86850; 86900; 86901; 87086; 90471; 90715; 93005; 93010; 93306; 93458; 94640; 94760; 99152; C1769; J0690; J0696; J1642; J1644; J1650; J1815; J1885; J1940; J2001; J2250; J2405; J2440; J2550; J2704; J2720; J3010; J3370; J3475; J3480; J3490; J7620; P9045; Q9967; S0017; S0028

== ENCOUNTER 2019-08-30 20:11 | Emergency (ER) | payer MEDICARE ==
--- NOTE | 2019-08-30 20:58 | CT ---
CT HEAD WITHOUT IV CONTRAST COMPARISON: 04/07/2014 HISTORY: Injury after a fall. History of prior CVA and weakness on the left. TECHNIQUE: Axial CT imaging at 5 mm intervals from vertex through skull base without contrast FINDINGS: Mild cerebral volume loss is present. There is no evidence of an acute infarction, hemorrhage, mass e ffect, or midline shift. The ventricular system is normal in size, shape, and position. Visualized paranasal sinuses are clear. Postoperative changes right calvarium are again seen. IMPRESSION: 1. No acute intracranial abnormality demonstrated.
--- NOTE | 2019-08-30 21:04 | CT ---
EXAM: CT cervical spine PROVIDED CLINICAL HISTORY: Injury after a fall TECHNIQUE: Contiguous axial CT images are obtained through the cervical spine from the skull base to the T2 leve l. Sagittal and coronal reformatted images are provided. COMPARISON: None FINDINGS: No evidence for fracture or traumatic subluxation. Scattered degenerative changes are seen in the cer vical spine. No prevertebral soft tissue swelling apparent. Visualized lung apices appear clear. A heterogeneous nodule is seen in the right lobe of thyroid gland measuring 3.9 cm. This nodule was p resent on the prior CTA thorax on 06/07/2018. Hypodense nodule in the left lobe of thyroid gland is also again seen. IMPRESSION: 1. Dominant heterogeneous nodule right lobe of thyroid gland as well as nodule left lobe of thyroid g land. These nodules were seen on prior CTA thorax. A thyroid ultrasound is recommended for further evaluation if this has not been performed.. 2. Scattered degenerative changes in the cervical spine. 3. No fracture or traumatic subluxation is seen involving the cervical spine..
--- NOTE | 2019-08-30 21:16 | RAD ---
Exam: XR Hip Rt 2-3 View HISTORY: Injury after a fall. Patient fell on right hip. COMPARISON: Views right hip 06/07/2018 FINDINGS: 3 long screws again transfix the right femoral neck with evidence of remote fracture deformity. Heter otopic ossification is seen medial to the right hip. No acute fracture, dislocation, or other acute osseous abnormality is identified. Radiopaque and springlike metallic densities overlie the pelvis which may represent overlying artifac t. IMPRESSION: No acute osseous abnormality is identified.
--- NOTE | 2019-08-30 21:18 | RAD ---
Exam: XR Knee Rt 4 View STANDARD HISTORY: Injury to right knee after a fall. COMPARISON: None FINDINGS: Surgical clips overlie the medial subcutaneous soft tissues right knee. No acute fracture, dislocation, or other acute osseous abnormality is identified. IMPRESSION: No acute osseous abnormality is identified.
[2019-08-30 21:24] LABS: #Basophils 0.1 thou/uL (0.0-0.2); #Eosinphils 0.2 thou/uL (0.0-0.7); #Lymphocytes 1.5 thou/uL (1.20-3.40); #Monocytes 0.6 thou/uL (0.11-0.59); #Neutrophils 3.4 thou/uL (1.40-6.50); %Basophils 1.6 % (0.0-1.0); %Lymphocytes 25.8 % (21.0-51.0); %Monocytes 9.7 % (0.0-10.0); Hemoglobin 13.1 g/dL (14.0-18.0); Mean Corpuscular Hemoglobin 28.9 pg (27.0-31.0); Mean Corpuscular Volume 87.6 fL (78.0-98.0); Mean Platelet Volume 9.8 fL (7.4-10.4); Platelet Count 165 thou/uL (130-400); RBC Distribution Width 14.2 % (11.5-14.5); Red Blood Cell (RBC) Count 4.53 mill/uL (4.70-6.10); White Blood Cell (WBC) Count 5.7 thou/uL (4.8-10.8)
[2019-08-30 21:30] LABS: INR-International Normal Ratio 1.1; PTT 25.6 sec (22.9-36.1)
[2019-08-30] MEDS ORDERED: Morphine 4 MG/ML VIAL ONE (21:30)
[2019-08-30 21:41] LABS: ALT (SGPT) 12 U/L (8-55); AST (SGOT) 13 U/L (5-34); Alkaline Phosphatase 63 U/L (40-110); Anion Gap 11 mmol/L (10-20); BUN (Urea Nitrogen) 17 mg/dL (8.4-25.7); Bilirubin, Total 0.4 mg/dL (0.2-1.2); Calc. Creatinine Clearance 0 mL/min (70-130); Calcium 8.9 mg/dL (7.8-10.44); Carbon Dioxide 21 mmol/L (23-31); Chloride 111 mmol/L (98-107); Estimated GFR-MDRD 66; Globulin 2.2 g/dL (2.4-3.5); Glucose 101 mg/dL (80-115); Potassium 3.9 mmol/L (3.5-5.1); Protein, Total 6.2 g/dL (5.8-8.1); Sodium 139 mmol/L (136-145)
== END 2019-08-30 23:22 | disposition home or self-care (01) ==
LOC: ERS 20:11
DX: S70.01XA Contusion of right hip, initial encounter (principal); S40.019A Contusion of unspecified shoulder, initial encounter; S00.83XA Contusion of other part of head, initial encounter; I25.2 Old myocardial infarction; E78.5 Hyperlipidemia, unspecified; I10 Essential (primary) hypertension; F32.9 Major depressive disorder, single episode, unspecified; Z87.891 Personal history of nicotine dependence; Z86.73 Personal history of transient ischemic attack (TIA), and cerebral infarction without residual deficits; Z79.899 Other long term (current) drug therapy; W01.0XXA Fall on same level from slipping, tripping and stumbling without subsequent striking against object, initial encounter
CPT/HCPCS: 36415; 70450; 72125; 80053; 85025; 85610; 85730; 86850; 86900; 86901; 93005; J2270

== ENCOUNTER 2020-09-02 13:31 | Inpatient (IN) | payer MEDICARE ==
[2020-09-02 14:24] LABS: #Lymphocytes 0.4 thou/uL (1.20-3.40); #Monocytes 0.6 thou/uL (0.11-0.59); #Neutrophils 5.2 thou/uL (1.40-6.50); %Basophils 0.1 % (0.0-1.0); %Eosinophils 0.5 % (0.0-10.0); %Lymphocytes 5.9 % (21.0-51.0); %Monocytes 9.2 % (0.0-10.0); %Neutrophils 84.2 % (42.0-75.0); Hemoglobin 12.9 g/dL (14.0-18.0); Mean Corpuscular HGB CONC 33.6 g/dL (32.0-36.0); Mean Corpuscular Hemoglobin 30.3 pg (27.0-31.0); Mean Corpuscular Volume 90.3 fL (78.0-98.0); Mean Platelet Volume 9.2 fL (7.4-10.4); Platelet Count 125 thou/uL (130-400); RBC Distribution Width 12.6 % (11.5-14.5); Red Blood Cell (RBC) Count 4.24 mill/uL (4.70-6.10); White Blood Cell (WBC) Count 6.2 thou/uL (4.8-10.8)
[2020-09-02 14:50] LABS: ALT (SGPT) 14 U/L (8-55); AST (SGOT) 15 U/L (5-34); Albumin 3.9 g/dL (3.4-4.8); Alkaline Phosphatase 56 U/L (40-110); Anion Gap 12 mmol/L (10-20); BUN (Urea Nitrogen) 17 mg/dL (8.4-25.7); Bilirubin, Total 0.5 mg/dL (0.2-1.2); Calc. Creatinine Clearance 0 mL/min (70-130); Calcium 8.5 mg/dL (7.8-10.44); Carbon Dioxide 22 mmol/L (23-31); Chloride 109 mmol/L (98-107); Globulin 2.2 g/dL (2.4-3.5); Glucose 118 mg/dL (80-115); Protein, Total 6.1 g/dL (5.8-8.1); Sodium 139 mmol/L (136-145)
[2020-09-02 15:34] LABS: SARS-CoV-2 NAA Rapid Test DETECTED (NotDetected)
[2020-09-02] MEDS ORDERED: Acetaminophen 500 MG TAB ONE (16:02)
[2020-09-02] MEDS ORDERED: Dexamethasone 10 MG/ML VIAL ONE (16:02)
[2020-09-02] MEDS ORDERED: Acetaminophen 325 MG TAB PO PRN (16:46)
[2020-09-02] MEDS ORDERED: Pharmacy to Dose REMDESIVIR IVPB PRN (16:55)
[2020-09-02] MEDS ORDERED: Enoxaparin Sodium 40 MG/0.4 ML SYRINGE SC SCH (17:00)
[2020-09-02 17:55] LABS: Troponin I Less than 0.010 ng/mL (< 0.028)
[2020-09-02 18:34] VITALS: BMI 24.8
[2020-09-02] MEDS ORDERED: Albuterol 200 PUFF (6.7GM INHALER) INH SCH (19:45)
[2020-09-02 20:49] LABS: Troponin I Less than 0.010 ng/mL (< 0.028)
[2020-09-02] MEDS: Acetaminophen 500 MG TAB PO PRN (21:34)
[2020-09-02] MEDS: Albuterol 200 PUFF (6.7GM INHALER) INH SCH (21:40)
[2020-09-03] MEDS ORDERED: traZODone HCl 50 MG TAB PO SCH ×2 (00:15→21:00)
[2020-09-03] MEDS ORDERED: Zolpidem Tartrate 5 MG TAB PO SCH ×2 (00:15→21:00)
[2020-09-03 01:05] LABS: Bacteria/HPF None Seen HPF (None Seen); Bilirubin Negative (Negative); Blood, Urine Trace (Negative); Clarity Clear (Clear); Glucose, Urine (Dipstick) 150 mg/dL (Negative); Ketone, Urine Negative (Negative); Leukocyte Negative Leu/uL (Negative); Mucous/LPF Rare LPF (<2+); Nitrite Negative (Negative); Protein, Urine (Dipstick) 20 mg/dL (Neg-Trace); RBC/HPF 0-3 HPF (0-3); Specific Gravity, Urine 1.029 (1.002-1.036); Squamous Epithelial None Seen HPF (0-3); Urobilinogen Normal mg/dL (Less than 2); pH, Urine 5.5 (5.0-9.0)
[2020-09-03] MEDS: Albuterol 200 PUFF (6.7GM INHALER) INH SCH ×6 (03:00→21:27)
[2020-09-03 05:58] LABS: #Lymphocytes 0.5 thou/uL (1.20-3.40); #Monocytes 0.4 thou/uL (0.11-0.59); #Neutrophils 3.5 thou/uL (1.40-6.50); %Eosinophils 0.1 % (0.0-10.0); %Lymphocytes 11.8 % (21.0-51.0); %Monocytes 9.3 % (0.0-10.0); %Neutrophils 78.8 % (42.0-75.0); Hemoglobin 12.5 g/dL (14.0-18.0); Mean Corpuscular HGB CONC 32.8 g/dL (32.0-36.0); Mean Corpuscular Hemoglobin 29.8 pg (27.0-31.0); Mean Corpuscular Volume 90.7 fL (78.0-98.0); Mean Platelet Volume 9.6 fL (7.4-10.4); Platelet Count 126 thou/uL (130-400); RBC Distribution Width 12.7 % (11.5-14.5); Red Blood Cell (RBC) Count 4.19 mill/uL (4.70-6.10); White Blood Cell (WBC) Count 4.4 thou/uL (4.8-10.8)
[2020-09-03 06:26] LABS: ALT (SGPT) 11 U/L (8-55); AST (SGOT) 13 U/L (5-34); Albumin 3.7 g/dL (3.4-4.8); Alkaline Phosphatase 47 U/L (40-110); BUN (Urea Nitrogen) 22 mg/dL (8.4-25.7); Bilirubin, Total 0.3 mg/dL (0.2-1.2); Calc. Creatinine Clearance 69 mL/min (70-130); Calcium 8.9 mg/dL (7.8-10.44); Carbon Dioxide 22 mmol/L (23-31); Chloride 112 mmol/L (98-107); Globulin 2.4 g/dL (2.4-3.5); Glucose 135 mg/dL (80-115); Potassium 4.3 mmol/L (3.5-5.1); Protein, Total 6.1 g/dL (5.8-8.1); Sodium 140 mmol/L (136-145)
[2020-09-03 06:37] LABS: Anion Gap 13 mmol/L (10-20)
[2020-09-03] MEDS ORDERED: Dicyclomine 20 MG TAB PO PRN (08:06)
[2020-09-03] MEDS: Aspirin 81 mg Enteric Coated Tablet PO SCH (08:32)
[2020-09-03] MEDS: Citalopram 20 MG TAB PO SCH (08:32)
[2020-09-03] MEDS: Tamsulosin HCl 0.4 MG CAP PO SCH (08:32)
[2020-09-03] MEDS: Clopidogrel Bisulfate 75 MG TAB PO SCH (08:32)
[2020-09-03] MEDS: Dexamethasone 4 MG TAB PO SCH (08:32)
[2020-09-03] MEDS ORDERED: Enoxaparin Sodium 40 MG/0.4 ML SYRINGE SC SCH (09:30)
[2020-09-03] MEDS: Cholestyramine/Aspartame 4 gm Packet PO SCH (10:32)
[2020-09-03] MEDS: Acetaminophen 500 MG TAB PO PRN (15:42)
[2020-09-03] MEDS: Atorvastatin Calcium 40 MG TAB PO SCH (21:27)
[2020-09-03] MEDS: traMADol HCl 50 MG TAB PO PRN (22:40)
[2020-09-03] MEDS: traZODone HCl 50 MG TAB PO PRN (22:40)
[2020-09-04] MEDS: Albuterol 200 PUFF (6.7GM INHALER) INH SCH ×6 (02:40→20:42)
[2020-09-04 06:54] LABS: ALT (SGPT) 12 U/L (8-55); AST (SGOT) 14 U/L (5-34); Albumin 3.4 g/dL (3.4-4.8); Alkaline Phosphatase 45 U/L (40-110); Anion Gap 9 mmol/L (10-20); BUN (Urea Nitrogen) 21 mg/dL (8.4-25.7); Bilirubin, Total 0.2 mg/dL (0.2-1.2); Calc. Creatinine Clearance 82 mL/min (70-130); Calcium 8.5 mg/dL (7.8-10.44); Carbon Dioxide 24 mmol/L (23-31); Chloride 111 mmol/L (98-107); Globulin 2.3 g/dL (2.4-3.5); Glucose 133 mg/dL (80-115); Potassium 3.5 mmol/L (3.5-5.1); Protein, Total 5.7 g/dL (5.8-8.1); Sodium 140 mmol/L (136-145)
[2020-09-04] MEDS: Losartan 25 MG TAB PO SCH (09:35)
[2020-09-04] MEDS: Senokot S 8.6-50 MG TAB PO SCH ×2 (09:35→20:40)
[2020-09-04] MEDS: Clopidogrel Bisulfate 75 MG TAB PO SCH (09:35)
[2020-09-04] MEDS: Acetaminophen 500 MG TAB PO PRN ×2 (09:36→21:33)
[2020-09-04] MEDS: Aspirin 81 mg Enteric Coated Tablet PO SCH (09:36)
[2020-09-04] MEDS: Tamsulosin HCl 0.4 MG CAP PO SCH (09:37)
[2020-09-04] MEDS: Citalopram 20 MG TAB PO SCH (09:37)
[2020-09-04] MEDS: Enoxaparin Sodium 40 MG/0.4 ML SYRINGE SC SCH (09:38)
[2020-09-04] MEDS: Dexamethasone 4 MG TAB PO SCH (09:41)
[2020-09-04] MEDS: Cholestyramine/Aspartame 4 gm Packet PO SCH (09:41)
[2020-09-04] MEDS: traZODone HCl 50 MG TAB PO PRN (20:40)
[2020-09-04] MEDS: traMADol HCl 50 MG TAB PO PRN (20:40)
[2020-09-04] MEDS: Atorvastatin Calcium 40 MG TAB PO SCH (20:41)
[2020-09-04] MEDS ORDERED: Zolpidem Tartrate 5 MG TAB PO SCH (21:30)
[2020-09-05] MEDS: Albuterol 200 PUFF (6.7GM INHALER) INH SCH ×3 (05:36→10:23)
[2020-09-05 07:17] LABS: ALT (SGPT) 12 U/L (8-55); AST (SGOT) 17 U/L (5-34); Albumin 3.5 g/dL (3.4-4.8); Alkaline Phosphatase 43 U/L (40-110); Anion Gap 10 mmol/L (10-20); BUN (Urea Nitrogen) 16 mg/dL (8.4-25.7); Bilirubin, Total 0.3 mg/dL (0.2-1.2); Calc. Creatinine Clearance 103 mL/min (70-130); Calcium 8.5 mg/dL (7.8-10.44); Carbon Dioxide 23 mmol/L (23-31); Chloride 109 mmol/L (98-107); Globulin 2.4 g/dL (2.4-3.5); Glucose 82 mg/dL (80-115); Potassium 3.9 mmol/L (3.5-5.1); Protein, Total 5.9 g/dL (5.8-8.1); Sodium 138 mmol/L (136-145)
[2020-09-05] MEDS: Clopidogrel Bisulfate 75 MG TAB PO SCH (08:03)
[2020-09-05] MEDS: Aspirin 81 mg Enteric Coated Tablet PO SCH (08:03)
[2020-09-05] MEDS: Senokot S 8.6-50 MG TAB PO SCH (08:03)
[2020-09-05] MEDS: Citalopram 20 MG TAB PO SCH (08:04)
[2020-09-05] MEDS: Dexamethasone 4 MG TAB PO SCH (08:04)
[2020-09-05] MEDS: Cholestyramine/Aspartame 4 gm Packet PO SCH (08:05)
[2020-09-05] MEDS: Tamsulosin HCl 0.4 MG CAP PO SCH (08:05)
[2020-09-05] MEDS: Enoxaparin Sodium 40 MG/0.4 ML SYRINGE SC SCH (08:06)
[2020-09-05] MEDS: Losartan 25 MG TAB PO SCH (08:07)
[2020-09-05] MEDS: Acetaminophen 500 MG TAB PO PRN (10:23)
[2020-09-05] MEDS ORDERED: Ketorolac Tromethamine 30 MG/ML VIAL IVP SCH (11:01)
[2020-09-05] MEDS ORDERED: Ibuprofen 800 MG TAB PO SCH (12:00)
[2020-09-05 13:14] VITALS: BP 134/78; TEMP 98.5
[2020-09-05] MEDS ORDERED: Zolpidem Tartrate 5 MG TAB PO SCH (21:00)
== END 2020-09-05 12:40 | disposition home or self-care (01) | DRG 177 ==
LOC: ERS 13:31 → T4-A 16:01
PROVIDERS: ADMIT Student in an Organized Health Care Education/Training Program; ATTEND Student in an Organized Health Care Education/Training Program
PROC: XW033E5 Introduction of Remdesivir Anti-infective into Peripheral Vein, Percutaneous Approach, New Technology Group 5 (ICD-10-PCS; principal; 2020-09-02)
PROC: 8E0ZXY6 Isolation (ICD-10-PCS; 2020-09-02)
DX: U07.1 COVID-19 (principal); J96.01 Acute respiratory failure with hypoxia; S32.2XXA Fracture of coccyx, initial encounter for closed fracture; I69.351 Hemiplegia and hemiparesis following cerebral infarction affecting right dominant side; Z66 Do not resuscitate; N40.0 Benign prostatic hyperplasia without lower urinary tract symptoms; I10 Essential (primary) hypertension; J44.9 Chronic obstructive pulmonary disease, unspecified; E78.5 Hyperlipidemia, unspecified; M25.551 Pain in right hip; M79.651 Pain in right thigh; M25.511 Pain in right shoulder; I25.10 Atherosclerotic heart disease of native coronary artery without angina pectoris; R32 Unspecified urinary incontinence; F32.9 Major depressive disorder, single episode, unspecified; W18.30XA Fall on same level, unspecified, initial encounter; Z91.81 History of falling; Z95.1 Presence of aortocoronary bypass graft; Z79.82 Long term (current) use of aspirin; Z79.899 Other long term (current) drug therapy; Z87.442 Personal history of urinary calculi; Z90.89 Acquired absence of other organs; Z86.711 Personal history of pulmonary embolism; Z98.890 Other specified postprocedural states; Z87.891 Personal history of nicotine dependence; Z82.49 Family history of ischemic heart disease and other diseases of the circulatory system; I25.2 Old myocardial infarction
CPT/HCPCS: 0240U; 36415; 71045; 72192; 80053; 81001; 82728; 83605; 84145; 84484; 85025; 85379; 86140; 87040; 87086; 93005; 96374; J1100; J1650; J7050; J8540